=== PATIENT | female | born 1955 | race African-American/Black ===

== ENCOUNTER 2017-08-06 08:58 | Inpatient (IN) | payer OTHER ==
[~2017-08-06] VITALS: Ht 149.9 cm; Wt 58.1 kg
[~2017-08-06 08:58] MED LIST: ALPRAZOLAM0.5 MG PR; ATORVASTATIN CA40 MG PO; BENZONATATE100 M1 PO; BLACK COHOSH40 MG PO; CEFUROXIME AXE250 MG PO; CHILDREN'S ASPI81 M1 PO; CORICIDIN HBP C1 TAB PO; CYCLOBENZAPRINE10 M2 PO; CYCLOBENZAPRINE5 M2 PO; CYMBALTA30 M1 PO; DECADRON2 MG PO; DULOXETINE30 MG PO; FEOSOL325 MG PO; FLEXERIL10 MG PO; GLIPIZIDE5 MG PO; GLYBURIDE5 MG PO; HYDROCODON-ACE1 EAC2 PO; HYDROCODONE/ACE1 TA1 PO; HYDRODIURIL 112.5 M1 PO; IBUPROFEN400 M1 PO; IBUPROFEN600 M1 PO; INVOKANA300 M1 PO; KEFLEX500 M1 PO; LEVEMIR 10100 UNITS/ SC; LINZESS145 MC1 PO; LIPITOR80 M1 PO; METOPROLOL TAR100 MG PO; MOBIC15 MG PO; NEURONTIN300 MG PO; NEXIUM 40MG40 MG PO; NITROSTAT0.4 M1 SL; NOVOLOG100 U/ML SC; OMEPRAZOLE40 M1 PO; PATANOL 5 ML5 ML OPH; PRAVASTATIN SOD80 MG PO; PROZAC 10MG10 MG PO; SUMATRIPTAN SU100 M1 PO; TESSALON PERLE100 M1 PO; TIZANIDINE HCL2 M1 PO; TOPAMAX25 M3 PO; TRAMADOL HCL50 M1 PO; VITAMIN D31000 UNI2 PO; VOLTAREN GEL1% TOP; VOLTAREN100 GM TOP; WARFARIN SODIUM5 MG PO; ZESTORETIC 12.51 TA1 PO; ZOFRAN ODT4 MG PO
--- NOTE | 2017-08-06 09:32 | ED CARDIAC/CP/PALPITATIONS ---
History of Present Illness General Chief Complaint: Chest Pain Stated Complaint: CHEST TIGHTNESS/BURNINGX 2 HRS Source: patient, old records Exam Limitations: clinical condition, severe chest pain Vital Signs & Intake/Output Vital Signs & Intake/Output Vital Signs Date Time Temp Pulse Resp B/P B/P Pulse O2 O2 Flow FiO2 Mean Ox Delivery Rate 08/07 0951 138/86 08/07 0951 138/86 08/07 0713 98.2 83 20 138/86 94 Room Air 08/06 2235 98.1 99 20 138/76 96 Room Air 08/06 2010 99 138/76 08/06 2010 99 138/76 08/06 1719 98.1 93 20 134/80 96 Room Air 08/06 1541 98.0 95 18 139/68 97 Room Air 08/06 1142 98.3 93 18 139/81 99 Room Air ED Intake and Output 08/07 0000 08/06 1200 Intake Total 104 Output Total Balance 104 Intake, IV 104 Number 0 Bowel Movements Patient 186 lb Weight Weight Bed scale Measurement Method Allergies Coded Allergies: lisinopril (Severe, TONGUE SWELLING 12/09/15) Reconcile Medications Acetaminophen (Tylenol Arthritis) 650 MG TABLET.ER 1 TAB PO DAILY PRN PAIN ( Reported) Amlodipine Besylate 5 MG TABLET 1 TAB PO DAILY HEART (Reported) Aspirin (Children's Aspirin) 81 MG TAB.CHEW 1 TAB PO DAILY HEART HEALTH ( Reported) Atorvastatin Calcium (Lipitor) 80 MG TABLET 1 TAB PO DAILY CHOLESTEROL ( Reported) Benzonatate (Tessalon Perle) 100 MG CAPSULE 1 CAP PO TID PRN COUGH Canagliflozin (Invokana) 300 MG TABLET 1 TAB PO DAILY DIABETES (Reported) Cholecalciferol (Vitamin D3) 1,000 UNIT TABLET 1 TAB PO DAILY SUPPLEMENT ( Reported) Clotrimazole/Betamethasone Dip (Clotrimazole-Betamethasone Crm) 1 %-0.05 % CREAM..G. 1 EDD TOP BID UNKNOWN (Reported) apply to affected area(s) Cyanocobalamin (Vitamin B-12) (Vitamin B-12) 100 MCG TABLET 1 TAB PO DAILY VITAMIN SUPPORT (Reported) Duloxetine Hydrochloride (Cymbalta) 30 MG CAPSULE.DR 1 CAP PO BID NERVE PAIN (Reported) Ferrous Sulfate (Feosol) 325 MG (65 MG IRON) TABLET 1 TAB PO DAILY IRON, VITAMIN (Reported) Hydrocodone/Acetaminophen (Hydrocodon-Acetaminophen 5-325) 1 EACH TABLET 1 TAB PO PRN PAIN (Reported) Ibuprofen 600 MG TABLET 1 TAB PO BID PAIN (Reported) with food Lactobacillus Combination No.4 (Probiotic) 3 BILLION CELL CAPSULE 1 CAP PO DAILY GI (Reported) Linaclotide (Linzess) 145 MCG CAPSULE 1 CAP PO DAILY GI (Reported) Metoprolol Tartrate 100 MG TABLET 1 TAB PO BID HEART (Reported) Omeprazole 40 MG CAPSULE.DR 1 CAP PO BID GI (Reported) Ondansetron (Zofran Odt) 4 MG TAB.RAPDIS 1 TAB SL TID PRN NAUSEA/VOMITING ( Reported) Sumatriptan Succinate 100 MG TABLET 1 TAB PO DAILY PRN HEADACHE (Reported) may repeat in 2 hours; do not exceed 200 mg in 24 hours Tizanidine HCl 2 MG TABLET 1 TAB PO QPMP PRN PAIN (Reported) Tramadol HCl 50 MG TABLET 1 TAB PO TID PAIN (Reported) Triage Note: 61[address] BECERRA CARDIOLOGY W HX STENTS TO ED FOR MIDSTERNAL/LEFT SIDED CHEST TIGHTNESS SINCE 529, TOOK SLNG SUSPENDER 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 PT IMMEDIATELY EKG [place], SHOWING TACHY RATE 100'S WITH WIDE COMPLEX ?BBB BUT NO DEFINITIVE ST SEGMENT ELEVATION. PT IS TEARFUL, DYSPNIC AND DIAPHORETIC. IV ESTABLISHED AND BLOOD DRAWN AND SENT. -N/V/D. PT THEN TO ROOM 9, PLACED ON CM AND BEDPAN PER REQUEST. DR BALDERRAMA NOTIFIED OF NEED FOR EVALUATION Triage Nurses Notes Reviewed? yes HPI: Patient presents for evaluation of sudden onset of severe chest tightness and burning that began about 5:00 this morning while at home. Patient states she had pain similar to this prior to a cardiac stent. The pain waxes and wanes and is associated with dyspnea. Patient hasn't tried any medications for the pain. She does also refer history of acid reflux but she says the pain is dissimilar. Past History Travel History Traveled to [place] past 21 day No Medical History Any Pertinent Medical History? see below for history Neurological: NONE EENT: NONE Cardiovascular: AFIB, CAD, hypertension, myocardial infarction, stent placement Respiratory: NONE Gastrointestinal: GERD Hepatic: NONE Renal: NONE Musculoskeletal: chronic back pain, osteoarthritis, LEG SPASMS Psychiatric: NONE Endocrine: diabetes Blood Disorders: NONE Cancer(s): NONE MARKETING EDITOR/Reproductive: UTERINE FIBROIDS History of MRSA: No History of VRE: No History of CDIFF: No Surgical History Surgical History: hysterectomy Psychosocial History Who do you live with Patient and family Services at Home None What is your primary language Sinhala Tobacco Use: Cognitive Impairment Family History Family History, If Any: FATHER FH: NM (myocardial infarction) Hx Contributory? No Review of Systems Review of Systems Constitutional: Reports: no symptoms. EENTM: Reports: no symptoms. Respiratory: Reports: no symptoms. Cardiovascular: Reports: see HPI. GI: Reports: no symptoms. Genitourinary: Reports: no symptoms. Musculoskeletal: Reports: no symptoms. Skin: Reports: no symptoms. Neurological/Psychological: Reports: no symptoms. Hematologic/Endocrine: Reports: no symptoms. Immunologic/Allergic: Reports: no symptoms. All Other Systems: Reviewed and Negative Physical Exam Physical Exam Cardiovascular: SEE BELOW Comments: Gen.: Well-nourished, well-developed, severe distress secondary to chest pain Head: Normocephalic, atraumatic. Eyes: Normal inspection bilaterally Ears: Normal inspection bilaterally Nose: Normal inspection Throat/mouth : Moist mucosa Neck: Supple, full range of motion, no goiter Heart: IRRegular rate and rhythm, systolic murmur Lungs: Clear to auscultation bilaterally with normal air entry Chest: Nontender Back: Normal range of motion Abdomen: Soft, nontender, nondistended, normal bowel sounds Extremities: Normal range of motion grossly, equal radial pulses, no cyanosis clubbing or edema Neurologic: Cranial nerves grossly intact, speech is clear Skin: warm and dry Psychiatric: Anxious secondary to pain, cooperative, no apparent delusions or hallucinations Core Measures ACS in differential dx? No CVA/TIA Diagnosis No Sepsis Present: No Sepsis Focused Exam Completed? No Progress Differential Diagnosis: AMI, aortic dissection, musculoskeletal pain, pericarditis, pneumonia, pneumothorax, PSVT, pulmonary embolism, unstable angina Plan of Care: Orders Procedure Date/time Status Consistent Carbohydrate 3 08/07 B Active PARTIAL THROMBOPLASTIN TIME 08/07 0830 Complete HEPATIC FUNCTION PANEL 08/07 599 Complete CBC WITHOUT DIFFERENTIAL 08/07 599 Complete BASIC ELECTROLYTES PLUS BUN&CR 08/07 599 Complete ECHOCARDIOGRAM 08/07 599 Active Heart Healthy Diet 08/06 D Complete TROPONIN LEVEL 08/06 2345 Complete EKG 08/06 2345 Active TROPONIN LEVEL 08/06 2300 Complete EKG 08/06 2300 Active PARTIAL THROMBOPLASTIN TIME 08/06 2030 Complete Heparin Drip- AFIB/FLUTTER/PE/ 08/06 1750 Active Weight 08/06 1738 Active Vital Signs 08/06 1738 Active Teach/Educate 08/06 1738 Active Pain Treatment and Response 08/06 1738 Active Nutritional Intake, Monitor 08/06 1738 Active Isolation 08/06 1738 Complete Intake & Output 08/06 1738 Active Patient Care Conference 08/06 1738 Active Activity/Ambulation 08/06 1738 Active TOTAL TRIODOTHYROXINE 08/06 1730 Complete FREE T4 08/06 1730 Complete EKG 08/06 1710 Active Pathway - chart 08/06 1708 Active House Staff 08/06 1708 Active Patient Data 08/06 1708 Active CASE MANAGEMENT CONSULT 08/06 1708 Active Code Status 08/06 1708 Active URINALYSIS 08/06 1551 Complete Misc Message 08/06 1453 Active ED Holding Orders 08/06 1453 Active Admit to inpatient 08/06 1453 Active Vital Signs 08/06 1453 Active Code Status 08/06 1453 Complete Patient Data 08/06 1452 Active NIH Stroke Scale 08/06 0940 Complete Intake & Output 08/06 0925 Active THYROID STIMULATING HORMONE 08/06 0915 Complete LIPID PANEL 08/06 0915 Complete GLYCOSYLATED HGB 08/06 0915 Complete GAMMA GLUTAMYL TRANSFERASE 08/06 0915 Complete Lab Add-on Test 08/06 UNK Active VTE Mechanical Prophylaxis 08/06 UNK Active Vital Signs 08/06 UNK Complete MISTAKE 08/06 UNK Active Telemetry/Program Management Specialist 08/06 UNK Active Intake & Output 08/06 UNK Complete Hemoccult 08/06 UNK Active FingerStick- Glucose 08/06 UNK Active PHARMACY COMMUNICATION FORM 08/06 UNK Active Current Medications Sig/Karmen Start time Last Medication Dose Stop Time Status Admin Nitroglycerin 0.4 MG 2000 08/08 1999 AC (Transderm Nitro 10MG (0.4 MG/Hr) Patch) Insulin Aspart 0 TIDAC 08/07 08 AC 08/07 (NovoLOG) 0924 Diclofenac Sodium 1 EDD 4 TIMES/DAY PRN 08/06 2315 AC (Voltaren 1% Gel) Duloxetine HCl 30 MG BID 08/06 2099 AC 08/07 (Cymbalta) 0952 Metoprolol Tartrate 100 MG BID 08/06 2100 AC 08/07 (Lopressor) 0951 Polyethylene Glycol 17 GM AT BEDTIME 08/06 2100 AC (Miralax) Tizanidine HCl 2 MG QPM PRN 08/06 1745 AC 08/06 (Zanaflex) 2010 Omeprazole 40 MG DAILY AC 08/06 1742 AC 08/07 (Prilosec) 0641 Aspirin 81 MG DAILY 08/06 1739 AC 08/07 (Aspirin) 0952 Atorvastatin Calcium 80 MG 1700 08/06 1739 AC 08/06 (Lipitor) 2010 Amlodipine Besylate 5 MG DAILY 08/06 1738 AC 08/07 (Norvasc) 0951 Morphine Sulfate 2 MG Q6-PRN PRN 08/06 1715 AC 08/07 (MORPHINE SULFATE) 0925 Acetaminophen 650 MG Q6P PRN 08/06 1630 AC (Tylenol) Oxycodone/ 1 TAB Q6P PRN 08/06 1630 AC 08/07 Acetaminophen 1046 (Percocet) Heparin Sodium 25,000 UNIT Q24H 08/06 1345 AC 08/06 (Porcine) 1428 (Heparin) Sodium Chloride 500 ML Laboratory Tests 08/07/17 0655: Anion Gap 9, Estimated GFR > 60, BUN/Creatinine Ratio 22.5, Total Bilirubin 0.6, Direct Bilirubin 0.2, AST 40 H, ALT 49, Alkaline Phosphatase 108, Total Protein 7.2, Albumin 3.9, APTT > 120 *H, CBC w Diff NO MAN DIFF REQ, RBC 4.89, MCV 83.0, MCH 26.6 L, MCHC 32.0 L, RDW 13.7, MPV 9.3, Gran % 37.8 L, Lymphocytes % 46.3 , Monocytes % 9.3, Eosinophils % 5.9 H, Basophils % 0.7, Absolute Granulocytes 2.0, Absolute Lymphocytes 2.4, Absolute Monocytes 0.5, Absolute Eosinophils 0.3, Absolute Basophils 0 08/07/17 0300: Urine Color YEL, Urine Clarity CLEAR, Urine pH 6.0, Ur Specific [place] 1.020, Urine Protein NEG, Urine Ketones NEG, Urine Nitrite NEG, Urine Bilirubin NEG, Urine Urobilinogen 0.2, Ur Leukocyte Esterase NEG, Ur Microscopic EXAM NOT REQUIRED, Urine Hemoglobin NEG, Urine Glucose >=1000 H 08/06/17 2330: Troponin I < 0.01 08/06/172023: APTT 83 H 08/06/17 1730: Troponin I < 0.01, Free T4 2.42, Total T3 1.80 H 08/06/17 1710: Troponin I Cancelled Diagnostic Imaging: Discussed w/RAD: CT Scan. Radiology Impression: PATIENT: ATIYA PATTON PRESENT AGE: 61 PATIENT ACCOUNT NO: [id number] : 53 LOCATION: [facility] ORDERING PHYSICIAN: Avila Balderrama MD SERVICE DATE: 08/06/17 EXAM TYPE: CAT - CTA CHEST-AORTIC DISSECTION STUDY PERFORMED: CTA OF THE CHEST WITH AND WITHOUT CONTRAST CLINICAL INFORMATION: Aortic dissection. Severe burning chest tightness. DESCRIPTION: Initial noncontrast CT of the chest was performed. Subsequently, arterial phase multidetector volumetric imaging was performed through the chest following the administration of 95 mL Optiray 320 intravenous contrast. No contrast reaction reported Sagittal and coronal reformatted images were obtained on the technologist workstation. Three-dimensional MIP reformatted imaging was performed and reviewed. Total exam dose-length product 816 mGy-cm COMPARISON: None FINDINGS: Vascular: There is no intramural hematoma on the precontrast images. The thoracic aorta is normal in caliber. There is no evidence of dissection. No significant atheromatous calcifications are seen. The great vessel origins are normal. The celiac axis and superior mesenteric arteries appear normal. Both renal arteries demonstrated a beaded morphology suggestive of fibromuscular dysplasia. A stent is present in the proximal aspect of the left renal artery. 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 The pulmonary artery is normal in caliber. No central or segmental pulmonary embolism is seen. Nonvascular: CHEST: The central airways are patent. No consolidation or mass is seen. There is a 3 mm nodule in the right upper lobe (series 4 image 189), a 2 mm nodule in the right middle lobe ( series 4 image 255), 4 mm nodule in the right lower lobe (series 4 image 284) and scattered sub-2 mm nodules in both lungs. There is subsegmental atelectasis in the right lower lobe. There is no pleural effusion or pneumothorax. A right upper paratracheal lymph node is mildly enlarged measuring 1.2 cm. Is normal nonenlarged mediastinal lymph nodes are noted. Reactive appearing axillary lymph nodes are seen bilaterally. There is no supraclavicular lymphadenopathy. The thyroid gland appears normal. No hilar lymphadenopathy is seen. There are multilevel degenerative changes in the thoracic spine. No fracture or destructive osseous lesion is seen. There are bilateral renal cysts. The remainder of the visualized upper abdominal viscera are within normal limits. IMPRESSION: - No evidence of aortic dissection or aneurysm. No pulmonary embolism. - No mass or consolidation in the chest. Scattered bilateral pulmonary nodules measuring up to 3 mm. According to the updated 2017 Fleischner Society recommendations, the advised follow-up imaging for solid nodules < 6 mm is: LOW RISK PATIENT: No routine follow-up. HIGH RISK PATIENT: Optional CT at 12 months. - Beaded morphology of the bilateral renal arteries typical of fibromuscular dysplasia. A left renal stent is present and is patent. 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 This finding requires follow-up. This critical result was discussed with Avila Balderrama on 08/06/2017 11:55 AM, and it was ascertained that the content and urgency of the report was understood at the time of direct communication. DICTATED BY: Hillary Herrera MD DATE/TIME DICTATED:08/06/171136 CASINO CONTROLLER:MADELINE DATE/TIME TRANSCRIBED:08/06/171136 CONFIDENTIAL, DO NOT COPY WITHOUT APPROPRIATE AUTHORIZATION. <Electronically signed in Other Vendor System> SIGNED BY: Hillary Herrera MD 08/06/17 1200 Initial ED EKG: rate (90), AFIB, nonspecific ST T wave chg Prior EKG: changed (nsr on prior) Comments: 08/06/2017 9:45:02 AM ATIYA just received sublingual nitroglycerin but cannot state if she feels any better. She remains hemodynamically stable. 08/06/2017 10:05:00 AM patient's pain has improved from an 8 out of 10 to a 5 out of 10. Clinically she looks more comfortable. Blood pressure in both arms is normal and without significant variation. She will receive morphine for pain. 08/06/2017 10:45:08 AM I have updated Atiya on her test results. She states she feels well currently and offers no complaint. 08/06/2017 12:16:56 PM Atiya feels well and does not currently have chest pain. She is sipping fluids and states the fluids do not re-create the pain. I have paged her stage driver, Dr. Becerra. The cause of her severe chest pain is unclear at this time. 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 08/06/2017 1:36:00 PM patient's case discussed with Dr. Becerra who feels the patient should be admitted and placed on IV heparin for her paroxysm of atrial fibrillation and given the initial clinical presentation. Departure Departure Disposition: STILL A PATIENT Condition: Stable Clinical Impression Primary Impression: Chest pain Referrals: Jeniffer Baeza MD (PCP/Family) Departure Forms: Customer Survey General Discharge Information Admission Note Spoke With: Angel Pickett MD Documentation of Exam: Documentation of any treatments & extenuating circumstances including Concerns Regarding Discharge (functional status, medication knowledge or non-compliance, living conditions, etc.) that warrant an admission rather than observation: Patient presented with severe chest pain. Her evaluation is unrevealing as to the underlying cause. The patient does have risk factors for coronary artery disease. She required not only nitroglycerin but also IV narcotics for appropriate pain control. I do not feel this is a good patient for outpatient management given the unclear nature of her severe pain. In addition her pain would prevent her from compliance with outpatient treatment. She requires hospitalization for IV narcotics for pain management. She should have serial troponins and EKGs and cardiology consultation should be considered for the possibility of coronary artery disease. Given the unclear nature of the cause of this patient's pain, additional studies should be considered such as echocardiogram or endoscopy. I feel this patient will require a multiple day hospitalization. Critical Care Note Critical Care Note Critical Care Time: 30-74 min
[2017-08-06 09:42] LABS: ABSOLUTE BASOPHIL COUNT 0 /CUMM (0.0-0.2); ABSOLUTE EOSINOPHIL COUNT 0.3 /CUMM (0.0-0.7); ABSOLUTE MONOCYTE COUNT 0.6 /CUMM (0.10-0.60); BASOPHIL % 0.4 % (0.0-2.0); EOSINOPHIL % 5.4 % (0-5); GRANULOCYTE % 41.5 % (42.2-75.2); HEMATOCRIT 44.9 % (37-47); MEAN CORPUSCULAR HGB 26.2 PG (27.0-31.0); MEAN CORPUSCULAR HGB CONC 31.8 G/DL (33.0-37.0); MEAN CORPUSCULAR VOLUME 82.5 FL (81.0-99.0); MEAN PLATELET VOLUME 9.1 FL (7.4-10.4); PLATELET COUNT 179 /CUMM (130-400); RBC DISTRIBUTION WIDTH 13.8 % (11.5-14.5); RED BLOOD CELL CT 5.44 /CUMM (4.20-5.40); WHITE BLOOD CELL COUNT 4.8 /CUMM (4.8-10.8)
[2017-08-06 09:50] LABS: PT 10.6 SEC (9.4-12.5)
--- NOTE | 2017-08-06 12:00 | CT SCAN REPORT ---
STUDY PERFORMED: CTA OF THE CHEST WITH AND WITHOUT CONTRAST CLINICAL INFORMATION: Aortic dissection. Severe burning chest tightness. DESCRIPTION: Initial noncontrast CT of the chest was performed. Subsequently, arterial phase multidetector volumetric imaging was performed through the chest following the administration of 95 mL Optiray 320 intravenous contrast. No contrast reaction reported Sagittal and coronal reformatted images were obtained on the technologist workstation. Three-dimensional MIP reformatted imaging was performed and reviewed. Total exam dose-length product 816 mGy-cm COMPARISON: None FINDINGS: Vascular: There is no intramural hematoma on the precontrast images. The thoracic aorta is normal in caliber. There is no evidence of dissection. No significant atheromatous calcifications are seen. The great vessel origins are normal. The celiac axis and superior mesenteric arteries appear normal. Both renal arteries demonstrated a beaded morphology suggestive of fibromuscular dysplasia. A stent is present in the proximal aspect of the left renal artery. 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 The pulmonary artery is normal in caliber. No central or segmental pulmonary embolism is seen. Nonvascular: CHEST: The central airways are patent. No consolidation or mass is seen. There is a 3 mm nodule in the right upper lobe (series 4 image 189), a 2 mm nodule in the right middle lobe (series 4 image 255), 4 mm nodule in the right lower lobe (series 4 image 284) and scattered sub-2 mm nodules in both lungs. There is subsegmental atelectasis in the right lower lobe. There is no pleural effusion or pneumothorax. A right upper paratracheal lymph node is mildly enlarged measuring 1.2 cm. Is normal nonenlarged mediastinal lymph nodes are noted. Reactive appearing axillary lymph nodes are seen bilaterally. There is no supraclavicular lymphadenopathy. The thyroid gland appears normal. No hilar lymphadenopathy is seen. There are multilevel degenerative changes in the thoracic spine. No fracture or destructive osseous lesion is seen. There are bilateral renal cysts. The remainder of the visualized upper abdominal viscera are within normal limits. IMPRESSION: - No evidence of aortic dissection or aneurysm. No pulmonary embolism. - No mass or consolidation in the chest. Scattered bilateral pulmonary nodules measuring up to 3 mm. According to the updated 2017 Fleischner Society recommendations, the advised follow-up imaging for solid nodules < 6 mm is: LOW RISK PATIENT: No routine follow-up. HIGH RISK PATIENT: Optional CT at 12 months. - Beaded morphology of the bilateral renal arteries typical of fibromuscular dysplasia. A left renal stent is present and is patent. 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 This finding requires follow-up. This critical result was discussed with Avila Balderrama on 08/06/2017 11:55 AM, and it was ascertained that the content and urgency of the report was understood at the time of direct communication.
[2017-08-06] MEDS ORDERED: TYLENOL ARTHRI650 M1 PO (14:49)
[2017-08-06] MEDS ORDERED: CLOTRIMAZOLE-BE15 GM TOP (14:50)
[2017-08-06] MEDS ORDERED: HYDROCODON-ACE1 EAC2 PO (14:52)
[2017-08-06] MEDS ORDERED: PROBIOTIC1 EAC1 PO (14:53)
[2017-08-06] MEDS ORDERED: METOPROLOL TAR100 M1 PO (14:55)
[2017-08-06] MEDS ORDERED: ZOFRAN ODT4 M1 SL (14:55)
[2017-08-06] MEDS ORDERED: VITAMIN B-12100 MC1 PO (14:56)
[2017-08-06] MEDS ORDERED: AMLODIPINE BESYL5 M1 PO (14:57)
--- NOTE | 2017-08-06 15:11 | PN- Att Addend ---
Attending Addendum Attending Brief Note Patient 61 o/f with pmh of hypertension, CAD and diabetes with renal artery stent placement in past presents for evaluation of sudden onset of severe chest tightness. Patient states she had pain similar to this prior to a cardiac stent. No fever, chills but diaphoresis on presentatin. No recent travel or sick contacts. Vitals stable HR 93 BP 139/81 SPO2 98 on RA trop 0.01 PE alert oriented x 3, not acute distress HEENT unremarakble Chest B/l air entry present CVS irregular heart rate Pulses +b/l lower extremities Neuro intact GI soft non tender Patient admitted for chest pain likely unstable angina with new onset atrial fibrillation. Place in telemetry monitoring. Obtain serial cardiac enzyems r/o VT. Cardiology consult. Start iv heparin, asa, statin, nitrates. Iv cardizem for HR control fibromuscular dysplasia. A left renal stent is present and is patent. 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 Attending MD Review Statement Attending Statement Attending MD Statement: examined this patient, discuss w/resident/PA/DOUGH BRAKE MACHINE OPERATOR, agreed w/resident/PA/DOUGH BRAKE MACHINE OPERATOR, discussed with family, reviewed EMR data (avail), discussed w/ nursing, discussed w/case mgmt, reviewed images, amended to note Attending Assessment/Plan: as above Admission Lab Results I reviewed the following labs: Laboratory Tests 08/06 0915 Chemistry Sodium (137 - 145 mmol/L) 143 Potassium (3.5 - 5.1 mmol/L) 4.2 Chloride (98 - 107 mmol/L) 103 Carbon Dioxide (22 - 30 mmol/L) 26 Anion Gap (5 - 16) 14 BUN (7 - 17 mg/dL) 18 H Creatinine (0.5 - 1.0 mg/dL) 0.9 Estimated GFR (>60 ml/min) > 60 BUN/Creatinine Ratio (7 - 25 %) 20.0 Glucose (65 - 99 mg/dL) 220 H Calcium (8.4 - 10.2 mg/dL) 10.2 Magnesium (1.6 - 2.3 mg/dL) 1.7 Total Bilirubin (0.2 - 1.3 mg/dL) 0.5 AST (14 - 36 U/L) 40 H ALT (9 - 52 U/L) 58 H Alkaline Phosphatase (<127 U/L) 144 H Troponin I (< 0.11 ng/ml) < 0.01 Total Protein (6.3 - 8.2 g/dL) 7.9 Albumin (3.5 - 5.0 g/dL) 4.4 Globulin (1.9 - 4.2 gm/dL) 3.5 Albumin/Globulin Ratio (1.1 - 2.2 %) 1.3 Lipase (23 - 300 U/L) 174 Coagulation PT (9.4 - 12.5 SEC) 10.6 INR (0.90 - 1.19) 0.97 Hematology CBC w Diff NO MAN DIFF REQ WBC (4.8 - 10.8 /CUMM) 4.8 RBC (4.20 - 5.40 /CUMM) 5.44 H Hgb (12.0 - 16.0 G/DL) 14.3 Hct (37 - 47 %) 44.9 MCV (81.0 - 99.0 FL) 82.5 MCH (27.0 - 31.0 PG) 26.2 L MCHC (33.0 - 37.0 G/DL) 31.8 L RDW (11.5 - 14.5 %) 13.8 Plt Count (130 - 400 /CUMM) 179 MPV (7.4 - 10.4 FL) 9.1 Gran % (42.2 - 75.2 %) 41.5 L Lymphocytes % (20.5 - 51.1 %) 41.1 Monocytes % (1.7 - 9.3 %) 11.6 H Eosinophils % (0 - 5 %) 5.4 H Basophils % (0.0 - 2.0 %) 0.4 Absolute Granulocytes (1.4 - 6.5 /CUMM) 2.0 Absolute Lymphocytes (1.2 - 3.4 /CUMM) 2.0 Absolute Monocytes (0.10 - 0.60 /CUMM) 0.6 Absolute Eosinophils (0.0 - 0.7 /CUMM) 0.3 Absolute Basophils (0.0 - 0.2 /CUMM) 0 Admission Meds I reviewed the following Meds: Current Medications Sig/Karmen Start time Last Medication Dose Stop Time Status Admin Heparin Sodium 25,000 UNIT Q24H 08/06 1345 AC 08/06 (Porcine) 1428 (Heparin) Sodium Chloride 500 ML
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
[2017-08-06 17:19] VITALS: BP 134/80
--- NOTE | 2017-08-06 18:24 | PN- Student ---
Subjective Subjective: HPI: The patient is a 61 year old female with a PMHx of A fib, T2DM, hypercholesterolemia, HTN, and NC s/p stent placement 12 years ago, who was brought into the ED by her daughter with 3-4 hours of chest pain. She was sitting in a chair at 5:00am when she felt a sudden pain in her left shoulder, which progressed into her left chest and down her left arm. She described the pain as a tightening, burning sensation, and like someone was pounding on her chest. The pain was a 11/10, and nothing made it better or worse. She got up to go to the bathroom and felt dizzy, so she had to lean against the sink for stability. She said she was so short of breath that she had to stay there for a while. Her SOB didn't change with position. She reported feeling sweaty, dizzy, weak, and nauseous during this time, and felt like her heart was racing. She had 1 tablet of sublingual nitroglycerin in the ED and reports that she is currently pain free. She denied any fever, chills, cough, vomiting, diarrhea, constipation , or recent infection. She didn't take any of her usual medications this morning because of the chest pain. She saw Dr. Millard 6 weeks ago when he increaed her atorvastatin to 80mg daily and added 5mg of daily amlodipine for additional blood pressure control. She is not on anticoagulation for her a fib. Her daughter is concerned that she is drinking so much water, and thinks that her glucose monitor is incorrect. The patient states that she checks her BG every other day in the morning before she eats, or when she is feeling bad. Past Medical History: Atrial fibrillation (12 years) HTN NC - stents (12 years ago) T2DM Hypercholesterolemia Hysterectomy Chronic low back pain Leg cramps Fibromuscular dysplasia s/p L renal artery stent? Social History: The patient lives at home with one of her daughters and grandaughter. Her other daughter lives down the street. She ambulates with cane. She is a lifetime non- smoker, denies any EtOH or recreational drug use. Family History: Father- of NC at age 69 Sister- of breast cancer 3 Children - no reported medical history ROS: See HPI Objective Objective: Vital Signs Date Time Temp Pulse Resp B/P B/P Pulse O2 O2 Flow FiO2 Mean Ox Delivery Rate 06/21 1719 98.1 93 20 134/80 96 Room Air 08/06 1541 98.0 95 18 139/68 97 Room Air 08/06 1142 98.3 93 18 139/81 99 Room Air 08/06 1011 118/74 08/06 0946 179/98 08/06 920 98.2 106 30 179/98 99 Room Air Physical Exam: General Appearance Alert, Oriented X3, Cooperative HEENT Atraumatic, PERRLA, EOMI, Mucous Membr. moist/pink Cardiovascular Normal S1, Normal S2 Lungs Clear to Auscultation Abdomen Normal Bowel Sounds, Soft Neurological Normal Speech Extremities No Clubbing, No Cyanosis, No Edema Current Medications Sig/Karmen Start time Last Medication Dose Route Stop Time Status Admin Acetaminophen 650 MG Q6P PRN 08/06 1630 AC PO Amlodipine Besylate 5 MG DAILY 08/06 1738 AC PO Aspirin 81 MG DAILY 08/06 1739 AC PO Atorvastatin Calcium 80 MG 1700 08/06 1739 AC PO Duloxetine HCl 30 MG BID 08/06 2100 AC PO Heparin Sodium 0 .STK-MED ONE 08/06 1359 DC (Porcine) .ROUTE Heparin Sodium 4,000 UNIT ONCE ONE 08/06 1345 DC 08/06 (Porcine) IV 08/06 1346 1428 Heparin Sodium 25,000 UNIT Q24H 08/06 1345 AC 08/06 (Porcine) IV 1428 Sodium Chloride 500 ML Insulin Aspart 0 TIDAC 08/07 0800 AC SC Lorazepam 0 .STK-MED ONE 08/06 1635 DC .ROUTE Lorazepam 0.5 MG ONCE ONE 08/06 1600 DC 08/06 IV 08/06 1601 1636 Lorazepam 0 .STK-MED ONE 08/06 1359 DC .ROUTE Lorazepam 0.5 MG ONCE ONE 08/06 1345 DC 08/06 IV 08/06 1346 1428 Metoprolol Tartrate 100 MG BID 08/06 2100 AC PO Metoprolol Tartrate 0 .STK-MED ONE 08/06 0932 DC IV Metoprolol Tartrate 5 MG ONCE ONE 08/06 0930 DC 08/06 IV 08/06 0931 0946 Morphine Sulfate 2 MG Q6-PRN PRN 08/06 1715 AC 08/06 IV 1807 Morphine Sulfate 0 .STK-MED ONE 08/06 1000 DC .ROUTE Morphine Sulfate 4 MG ONCE ONE 08/06 929 DC 08/06 IV 08/06 930 1009 Nitroglycerin 0.4 MG DAILY 08/06 1717 AC TOP Nitroglycerin 0 .STK-MED ONE 08/07 931 DC TOP Nitroglycerin 0 .STK-MED ONE 08/07 931 DC SL Nitroglycerin 0.4 MG ONCE ONE 08/06 929 DC 08/06 SL 08/06 930 0946 Nitroglycerin 1 GM ONCE ONE 08/06 929 DC 08/06 TOP 08/06 930 0946 Omeprazole 40 MG DAILY AC 08/06 1742 AC PO Oxycodone/ 1 TAB Q6P PRN 08/06 1630 AC Acetaminophen PO Polyethylene Glycol 17 GM AT BEDTIME 08/06 2100 AC PO Tizanidine HCl 2 MG QPM PRN 08/06 1745 AC PO Laboratory Tests 08/06 08/06 1730 0915 Chemistry Sodium (137 - 145 mmol/L) 143 Potassium (3.5 - 5.1 mmol/L) 4.2 Chloride (98 - 107 mmol/L) 103 Carbon Dioxide (22 - 30 mmol/L) 26 Anion Gap (5 - 16) 14 BUN (7 - 17 mg/dL) 18 H Creatinine (0.5 - 1.0 mg/dL) 0.9 Estimated GFR (>60 ml/min) > 60 BUN/Creatinine Ratio (7 - 25 %) 20.0 Glucose (65 - 99 mg/dL) 220 H Hemoglobin A1c (4.2 - 5.8 %) Pending Calcium (8.4 - 10.2 mg/dL) 10.2 Magnesium (1.6 - 2.3 mg/dL) 1.7 Total Bilirubin (0.2 - 1.3 mg/dL) 0.5 GGT (12 - 43 U/L) 94 H AST (14 - 36 U/L) 40 H ALT (9 - 52 U/L) 58 H Alkaline Phosphatase (<127 U/L) 144 H Troponin I (< 0.11 ng/ml) Pending < 0.01 Total Protein (6.3 - 8.2 g/dL) 7.9 Albumin (3.5 - 5.0 g/dL) 4.4 Globulin (1.9 - 4.2 gm/dL) 3.5 Albumin/Globulin Ratio (1.1 - 2.2 %) 1.3 Lipase (23 - 300 U/L) 174 TSH (0.270 - 4.200 uIU/mL) 0.148 L Coagulation PT (9.4 - 12.5 SEC) 10.6 INR (0.90 - 1.19) 0.97 Hematology CBC w Diff NO MAN DIFF REQ WBC (4.8 - 10.8 /CUMM) 4.8 RBC (4.20 - 5.40 /CUMM) 5.44 H Hgb (12.0 - 16.0 G/DL) 14.3 Hct (37 - 47 %) 44.9 MCV (81.0 - 99.0 FL) 82.5 MCH (27.0 - 31.0 PG) 26.2 L MCHC (33.0 - 37.0 G/DL) 31.8 L RDW (11.5 - 14.5 %) 13.8 Plt Count (130 - 400 /CUMM) 179 MPV (7.4 - 10.4 FL) 9.1 Gran % (42.2 - 75.2 %) 41.5 L Lymphocytes % (20.5 - 51.1 %) 41.1 Monocytes % (1.7 - 9.3 %) 11.6 H Eosinophils % (0 - 5 %) 5.4 H Basophils % (0.0 - 2.0 %) 0.4 Absolute Granulocytes (1.4 - 6.5 /CUMM) 2.0 Absolute Lymphocytes (1.2 - 3.4 /CUMM) 2.0 Absolute Monocytes (0.10 - 0.60 /CUMM) 0.6 Absolute Eosinophils (0.0 - 0.7 /CUMM) 0.3 Absolute Basophils (0.0 - 0.2 /CUMM) [address]: - No evidence of aortic dissection or aneurysm. No pulmonary embolism. - No mass or consolidation in the chest. Scattered bilateral pulmonary nodules measuring up to 3 mm. According to the updated 2017 Fleischner Society recommendations, the advised follow-up imaging for solid nodules < 6 mm is: LOW RISK PATIENT: No routine follow-up. HIGH RISK PATIENT: Optional CT at 12 months. - Beaded morphology of the bilateral renal arteries typical of fibromuscular dysplasia. A left renal stent is present and is patent. 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 This finding requires follow-up. Results Results: Laboratory Tests 08/06/17 1730: Troponin I Pending 08/06/17 0915: Anion Gap 14, Estimated GFR > 60, BUN/Creatinine Ratio 20.0, Glucose 220 H, Hemoglobin A1c Pending, Calcium 10.2, Magnesium 1.7, Total Bilirubin 0.5, GGT 94 H, AST 40 H, ALT 58 H, Alkaline Phosphatase 144 H, Troponin I < 0.01, Total Protein 7.9, Albumin 4.4, Globulin 3.5, Albumin/Globulin Ratio 1.3, Lipase 174, TSH 0.148 L, PT 10.6, INR 0.97, CBC w Diff NO MAN DIFF REQ, RBC 5.44 H, MCV 82.5, MCH 26.2 L, MCHC 31.8 L, RDW 13.8, MPV 9.1, Gran % 41.5 L, Lymphocytes % 41.1, Monocytes % 11.6 H, Eosinophils % 5.4 H, Basophils % 0.4, Absolute Granulocytes 2.0, Absolute Lymphocytes 2.0, Absolute Monocytes 0.6, Absolute Eosinophils 0.3, Absolute Basophils 0 Assessment/Plan Assessment: The patient is a 61 year old female with a PMHx of A fib, T2DM, hypercholesterolemia, HTN, and NC s/p stent placement 12 years ago, who presented to the ED with 3-4 hours of tightening chest pain with radiation down her left arm. Her intial troponin was negative and there was no ST elevation on EKG. Her vitals on admission were T 98.3, HR 93, RR 18, BP 139/81, O2 99% on RA. Her BG was 220, AST 40, ALT 58, GGT 94, Alk Phos 144. Her chest CT showed no evidence of aortic dissection or aneurysm, was was significant for beaded morphology of renal arteries suggestive of fibromuscular dysplasia and a patent L renal artery stent, 2.1 cm peripheral calciefied aneurysm on L renal artery, and scattered bilateral pulmonary nodules up to 3mm. She was seen in 2014 for unstable angina and a fib, and her echo at that time showed EF of >60%, dipyridamole stress test was negative. Differential diagnosis includes unstable angina, atrial fibrillation, NC, hypertensive urgency, GERD, musculoskeletal pain. The patient was sitting when the pain occured suddenly, was not associated with eating and did not change with movement or palpation which can lower GERD and MSK pain on differential. Patient's bp was high on admission but not high enough to qualify for hypertensive urgency, and has since gone down to 139/81 which suggests it was not hypertensive urgency. Need to take NC precautions and repeat troponin, EKG, and telemetry. Her pain improved with SNG which suggests it was ischemic in nature, but troponin, and EKG were negative for NC so unstable angina seems most likely. Plan: Chest pain: Nitroglycerin Morphine for pain Heparin drip Aspirin Beta carmelo Statin Telemetry Repeat troponin Atrial fibrillation: Continue home medications Start on anticoagulation Continue amlodipine 5mg daily Diabetes Mellitus: Consult endocrinology Insulin Diet control ACCU checks Order an HbA1c Chronic back pain: Acetaminophen [address] Q6 [address] Renal artery stenosis: Control blood pressure Monitor kidney function Pulmonary nodules: Pulmonary consult
--- NOTE | 2017-08-06 19:22 | CT SCAN REPORT ---
EXAMINATION: CT LUMBAR SPINE WITHOUT CONTRAST CLINICAL INFORMATION: Severe lumbar spine pain in setting of lung nodules. COMPARISON: CT scan of the pelvis 12/09/2015. MRI scan of the lumbar spine 01/04/2014. TECHNIQUE: Helical non-contrast CT images were obtained through the lumbar spine and 1.25 and 2.5 mm axial reconstructions were reviewed along with sagittal and coronal MPRs. DLP: 914.58 mGy-cm FINDINGS: The study redemonstrates the grade 1 anterolisthesis of L4 on L5. There is a mild retrolisthesis of L5 on S1. There is narrowing of intervertebral disc height at multiple levels. Vertebral body heights are maintained. There are no compression fractures. Bone mineralization appears normal. Contrast is noted in the renal collecting systems and urinary bladder, from CTA of the chest performed earlier on 08/06/2017. There is an incompletely visualized renal cyst at the mid/lower pole of the right kidney. There is a left renal artery stent. There are moderate sclerotic degenerative changes at the bilateral sacroiliac joints with vacuum phenomena. SPINAL LEVELS: T12-L1: The disc configuration is normal. The central canal and neural foramina are widely patent. The facet joints are normal. L1-L2: There is mild bilateral facet arthropathy. Disc contour is normal. There is no central stenosis or foraminal narrowing. L2-L3: There is mild facet arthropathy with ligamenta flava hypertrophy. There is mild diffuse disc bulge. There is no central stenosis. The neural foramina appear patent. L3-L4: There is severe right and moderate to severe left facet arthropathy. There is a broad-based posterior disc protrusion extending into the right greater than left neural foramina, with likely impingement on the exiting right L3 nerve root, which is a new finding. There is narrowing of the subarticular recesses bilaterally and there is moderate central stenosis. L4-L5: There is unroofing of the disc as a result of the anterolisthesis. There is severe bilateral facet arthropathy with ligamenta flava hypertrophy. There is a posterior disc protrusion extending into the neural foramina bilaterally with impingement on the exiting L4 nerve roots, similar compared to the prior study. There is severe central stenosis. L5-S1: There is moderate to severe bilateral facet arthropathy. There is a left-sided disc osteophyte complex extending into the left neural foramen with impingement on the exiting left L5 nerve root, similar compared to the prior study. There is narrowing of the left subarticular recess. There is no central stenosis. IMPRESSION: 1. The study redemonstrates the grade 1 anterolisthesis of L4 on L5 secondary to severe bilateral facet arthropathy. There are bilateral foraminal disc protrusions impinging on the exiting L4 nerve roots and there is severe central stenosis. 2. There is a new right foraminal disc protrusion at L3-L4 with impingement on the exiting right L3 nerve root. There is moderate central stenosis and subarticular recess narrowing. 3. There is a left foraminal disc osteophyte complex at L5-S1 with impingement on the exiting left L5 nerve root, unchanged. 4. There are no acute fractures or subluxations. Bone mineralization appears within normal limits.
--- NOTE | 2017-08-06 19:49 | Cons- Cardiology ---
General Information and HPI Consulting Request Date of Consult: 08/06/17 Requested By: Angel Pickett MD Reason for Consult: Chest pain, atrial fibrillator History of Present Illness: The patient is a a 61-year-old female with history of CAD, status post stent placement approximately 12 years ago, remote history of atrial fibrillation, and pulmonary embolism in 2009. She has been off anticoagulation because she has not had recurrence of atrial fibrillation in many years. She presented to the emergency department with complaint of chest tightness which began when she awoke from sleep at 5:00 AM. The tightness radiated to her left arm and varied up to 10 out of 10 in severity. There was associated diaphoresis, dizziness, nausea, and shortness of breath. She presented to the emergency department after 3 hours, and she was found to be in atrial fibrillation. Ventricular rate was under control. She notes intermittent nausea. She was treated with sublingual nitroglycerin in the emergency department. She is now pain-free. No syncope. No orthopnea. Allergies/Medications Allergies: Coded Allergies: lisinopril (Severe, TONGUE SWELLING 12/09/15) Home Med List: Acetaminophen (Tylenol Arthritis) 650 MG TABLET.ER 1 TAB PO DAILY PRN PAIN ( Reported) Amlodipine Besylate 5 MG TABLET 1 TAB PO DAILY HEART (Reported) Aspirin (Children's Aspirin) 81 MG TAB.CHEW 1 TAB PO DAILY HEART HEALTH ( Reported) Atorvastatin Calcium (Lipitor) 80 MG TABLET 1 TAB PO DAILY CHOLESTEROL ( Reported) Benzonatate (Tessalon Perle) 100 MG CAPSULE 1 CAP PO TID PRN COUGH Canagliflozin (Invokana) 300 MG TABLET 1 TAB PO DAILY DIABETES (Reported) Cholecalciferol (Vitamin D3) 1,000 UNIT TABLET 1 TAB PO DAILY SUPPLEMENT ( Reported) Clotrimazole/Betamethasone Dip (Clotrimazole-Betamethasone Crm) 1 %-0.05 % CREAM..G. 1 EDD TOP BID UNKNOWN (Reported) apply to affected area(s) Cyanocobalamin (Vitamin B-12) (Vitamin B-12) 100 MCG TABLET 1 TAB PO DAILY VITAMIN SUPPORT (Reported) Duloxetine Hydrochloride (Cymbalta) 30 MG CAPSULE.DR 1 CAP PO BID NERVE PAIN (Reported) Ferrous Sulfate (Feosol) 325 MG (65 MG IRON) TABLET 1 TAB PO DAILY IRON, VITAMIN (Reported) Hydrocodone/Acetaminophen (Hydrocodon-Acetaminophen 5-325) 1 EACH TABLET 1 TAB PO PRN PAIN (Reported) Ibuprofen 600 MG TABLET 1 TAB PO BID PAIN (Reported) with food Lactobacillus Combination No.4 (Probiotic) 3 BILLION CELL CAPSULE 1 CAP PO DAILY GI (Reported) Linaclotide (Linzess) 145 MCG CAPSULE 1 CAP PO DAILY GI (Reported) Metoprolol Tartrate 100 MG TABLET 1 TAB PO BID HEART (Reported) Omeprazole 40 MG CAPSULE.DR 1 CAP PO BID GI (Reported) Ondansetron (Zofran Odt) 4 MG TAB.RAPDIS 1 TAB SL TID PRN NAUSEA/VOMITING ( Reported) Sumatriptan Succinate 100 MG TABLET 1 TAB PO DAILY PRN HEADACHE (Reported) may repeat in 2 hours; do not exceed 200 mg in 24 hours Tizanidine HCl 2 MG TABLET 1 TAB PO QPMP PRN PAIN (Reported) Tramadol HCl 50 MG TABLET 1 TAB PO TID PAIN (Reported) Current Medications: Current Medications Sig/Karmen Start time Last Medication Dose Route Stop Time Status Admin Acetaminophen 650 MG Q6P PRN 08/06 1630 AC PO Amlodipine Besylate 5 MG DAILY 08/06 1738 AC PO Aspirin 81 MG DAILY 08/06 1739 AC PO Atorvastatin Calcium 80 MG 1700 08/06 1739 AC PO Duloxetine HCl 30 MG BID 08/06 2100 AC PO Heparin Sodium 0 .STK-MED ONE 08/06 1359 DC (Porcine) .ROUTE Heparin Sodium 4,000 UNIT ONCE ONE 08/06 1345 DC 08/06 (Porcine) IV 08/06 1346 1428 Heparin Sodium 25,000 UNIT Q24H 08/06 1345 AC 08/06 (Porcine) IV 1428 Sodium Chloride 500 ML Insulin Aspart 0 TIDAC 08/07 0800 AC SC Lorazepam 0 .STK-MED ONE 08/06 1635 DC .ROUTE Lorazepam 0.5 MG ONCE ONE 08/06 1600 DC 08/06 IV 08/06 1601 1636 Lorazepam 0 .STK-MED ONE 08/06 1359 DC .ROUTE Lorazepam 0.5 MG ONCE ONE 08/06 1345 DC 08/06 IV 08/06 1346 1428 Metoprolol Tartrate 100 MG BID 08/06 2100 AC PO Metoprolol Tartrate 0 .STK-MED ONE 08/06 0932 DC IV Metoprolol Tartrate 5 MG ONCE ONE 08/06 929 DC 08/06 IV 08/06 0931 0946 Morphine Sulfate 2 MG Q6-PRN PRN 08/06 1715 AC 08/06 IV 1807 Morphine Sulfate 0 .STK-MED ONE 08/06 1000 DC .ROUTE Morphine Sulfate 4 MG ONCE ONE 08/06 09 DC 08/06 IV 08/06 0931 1009 Nitroglycerin 0.4 MG DAILY 08/06 1717 AC TOP Nitroglycerin 0 .STK-MED ONE 08/06 0932 DC TOP Nitroglycerin 0 .STK-MED ONE 08/06 0932 DC SL Nitroglycerin 0.4 MG ONCE ONE 08/06 0930 DC 08/06 SL 08/06 0831 0946 Nitroglycerin 1 GM ONCE ONE 08/06 929 DC 08/06 TOP 08/06 930 0946 Omeprazole 40 MG DAILY AC 08/06 1742 AC PO Oxycodone/ 1 TAB Q6P PRN 08/06 1630 AC Acetaminophen PO Polyethylene Glycol 17 GM AT BEDTIME 08/06 2100 AC PO Tizanidine HCl 2 MG QPM PRN 08/06 1745 AC PO Review of Systems Review of Systems: No rash. No tremor. No fever. No chills. All other systems are reviewed and are noted to be negative. Past History Travel History Traveled to [place] past 21 day No Medical History Blood Transfusion Hx: No Neurological: NONE EENT: NONE Cardiovascular: AFIB, CAD, hypertension, myocardial infarction, stent placement CABG Respiratory: NONE Gastrointestinal: GERD Hepatic: NONE Renal: NONE Musculoskeletal: chronic back pain, osteoarthritis, LEG SPASMS Psychiatric: NONE Endocrine: diabetes Blood Disorders: NONE Cancer(s): NONE MANAGER UTILITY/Reproductive: UTERINE FIBROIDS Surgical History Surgical History: hysterectomy Family History Relations & Conditions If Any: FATHER FH: [place] (myocardial infarction) SISTER Relation not specified for: FH: breast cancer Psychosocial History Where Do You Live? Home Services at Home: None Smoking Status: Never Smoked Functional Ability ADLs Independent: dressing, eating, toileting, bathing. Ambulation: independent Exam & Diagnostic Data Vital Signs and I&O Vital Signs Date Time Temp Pulse Resp B/P B/P Pulse O2 O2 Flow FiO2 Mean Ox Delivery Rate 08/06 1719 98.1 93 20 134/80 96 Room Air 08/06 1541 98.0 95 18 139/68 97 Room Air 08/06 1142 98.3 93 18 139/81 99 Room Air 08/06 1011 118/74 08/06 0946 179/98 08/06 0921 98.2 106 30 179/98 99 Room Air Intake & Output 08/06 1600 08/06 0800 08/06 0000 08/05 1600 08/05 0800 08/05 0000 Intake Total Output Total Balance Patient 184 lb Weight Physical Exam: Gen: The patient is in no acute distress HEENT: Normal nose, ears, and oropharynx. Pupils equal bilaterally. Conjunctiva normal. Neck: Supple with no JVD, no masses, and no thyromegaly Lungs: Clear to auscultation with normal respiratory effort Heart: RRR, S1, S2, no murmurs. No peripheral edema, 2+ pulses in the lower extremities bilaterally Abdomen: Soft, nontender, no masses. No hepatomegaly. No splenomegaly Extremities: No clubbing or cyanosis. Normal muscle strength in the upper and lower extremities Skin: Normal skin turgor with no skin ulcers or lesions noted. Neuro: Cranial nerves intact. Sensation intact Psych: Alert and oriented x 3 with appropriate affect Labs/Tu Results: Laboratory Tests 08/06 08/06 1730 0915 Chemistry Sodium (137 - 145 mmol/L) 143 Potassium (3.5 - 5.1 mmol/L) 4.2 Chloride (98 - 107 mmol/L) 103 Carbon Dioxide (22 - 30 mmol/L) 26 Anion Gap (5 - 16) 14 BUN (7 - 17 mg/dL) 18 H Creatinine (0.5 - 1.0 mg/dL) 0.9 Estimated GFR (>60 ml/min) > 60 BUN/Creatinine Ratio (7 - 25 %) 20.0 Glucose (65 - 99 mg/dL) 220 H Hemoglobin A1c (4.2 - 5.8 %) Pending Calcium (8.4 - 10.2 mg/dL) 10.2 Magnesium (1.6 - 2.3 mg/dL) 1.7 Total Bilirubin (0.2 - 1.3 mg/dL) 0.5 GGT (12 - 43 U/L) 94 H AST (14 - 36 U/L) 40 H ALT (9 - 52 U/L) 58 H Alkaline Phosphatase (<127 U/L) 144 H Troponin I (< 0.11 ng/ml) < 0.01 < 0.01 Total Protein (6.3 - 8.2 g/dL) 7.9 Albumin (3.5 - 5.0 g/dL) 4.4 Globulin (1.9 - 4.2 gm/dL) 3.5 Albumin/Globulin Ratio (1.1 - 2.2 %) 1.3 Triglycerides (<150 mg/dL) 346 H Cholesterol (<200 MG/DL) 183 LDL Cholesterol, Calc (65 - 129 mg/dL) 57 L HDL Cholesterol (40 - 60 mg/dL) 57 Cholesterol/HDL Ratio (0.00 - 4.23 %) 3 Lipase (23 - 300 U/L) 174 TSH (0.270 - 4.200 uIU/mL) 0.148 L Free T4 (0.78 - 2.44 ng/dL) 2.42 Total T3 (0.97 - 1.69 ng/mL) 1.80 H Coagulation PT (9.4 - 12.5 SEC) 10.6 INR (0.90 - 1.19) 0.97 Hematology CBC w Diff NO MAN DIFF REQ WBC (4.8 - 10.8 /CUMM) 4.8 RBC (4.20 - 5.40 /CUMM) 5.44 H Hgb (12.0 - 16.0 G/DL) 14.3 Hct (37 - 47 %) 44.9 MCV (81.0 - 99.0 FL) 82.5 MCH (27.0 - 31.0 PG) 26.2 L MCHC (33.0 - 37.0 G/DL) 31.8 L RDW (11.5 - 14.5 %) 13.8 Plt Count (130 - 400 /CUMM) 179 MPV (7.4 - 10.4 FL) 9.1 Gran % (42.2 - 75.2 %) 41.5 L Lymphocytes % (20.5 - 51.1 %) 41.1 Monocytes % (1.7 - 9.3 %) 11.6 H Eosinophils % (0 - 5 %) 5.4 H Basophils % (0.0 - 2.0 %) 0.4 Absolute Granulocytes (1.4 - 6.5 /CUMM) 2.0 Absolute Lymphocytes (1.2 - 3.4 /CUMM) 2.0 Absolute Monocytes (0.10 - 0.60 /CUMM) 0.6 Absolute Eosinophils (0.0 - 0.7 /CUMM) 0.3 Absolute Basophils (0.0 - 0.2 /CUMM) 0 Diagnostic Data EKG Results EKG tracings are independently reviewed. EKG from 09 reveals atrial fibrillation with ventricular response of 90, right bundle branch block, left ventricular hypertrophy EKG from 1725 reveals normal sinus rhythm at 90, right bundle branch block, left ventricular hypertrophy Other Results CTA chest: - No evidence of aortic dissection or aneurysm. No pulmonary embolism. - No mass or consolidation in the chest. Scattered bilateral pulmonary nodules measuring up to 3 mm. According to the updated 2017 Fleischner Society recommendations, the advised follow-up imaging for solid nodules < 6 mm is: LOW RISK PATIENT: No routine follow-up. HIGH RISK PATIENT: Optional CT at 12 months. - Beaded morphology of the bilateral renal arteries typical of fibromuscular dysplasia. A left renal stent is present and is patent. 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 This finding requires follow-up. Assessment/Plan Assessment/Plan The patient is a 61-year-old female with history of coronary artery disease, remote history of stent placement, and remote history of atrial fibrillation presenting with chest discomfort, found to be in recurrent atrial fibrillation. Chest discomfort has resolved. The patient converted spontaneously to sinus rhythm in the emergency department. Recommendations: * Monitor on telemetry * Check serial troponin to rule out myocardial infarction * Given the recurrent atrial fibrillation, I recommend long-term anticoagulation. IV heparin has been initiated. This should be changed to p.o. Eliquis prior to discharge. * Echocardiardiogram * Continue aspirin * Continue metoprolol * Continue other cardiac medication Consult Acknowledgment - Thank you for your consult request.
[2017-08-06 20:59] LABS: PTT 83 SEC (25-37)
[2017-08-06 22:35] VITALS: BP 138/76
[2017-08-07 07:13] VITALS: BP 138/86; BP 86/58
[2017-08-07 08:22] LABS: ABSOLUTE BASOPHIL COUNT 0 /CUMM (0.0-0.2); ABSOLUTE EOSINOPHIL COUNT 0.3 /CUMM (0.0-0.7); ABSOLUTE LYMPH COUNT 2.4 /CUMM (1.2-3.4); ABSOLUTE MONOCYTE COUNT 0.5 /CUMM (0.10-0.60); BASOPHIL % 0.7 % (0.0-2.0); EOSINOPHIL % 5.9 % (0-5); GRANULOCYTE % 37.8 % (42.2-75.2); HEMATOCRIT 40.6 % (37-47); MEAN CORPUSCULAR HGB 26.6 PG (27.0-31.0); MEAN PLATELET VOLUME 9.3 FL (7.4-10.4); PLATELET COUNT 173 /CUMM (130-400); RBC DISTRIBUTION WIDTH 13.7 % (11.5-14.5); RED BLOOD CELL CT 4.89 /CUMM (4.20-5.40); WHITE BLOOD CELL COUNT 5.2 /CUMM (4.8-10.8)
--- NOTE | 2017-08-07 08:30 | PN- Housestaff ---
Ugo DAVIS,Samantha 08/07/17 0830: Subjective Follow-up For: paroxysmal A. fib not on anticoagulation chest pain, history of CAD S/P stent and cardiac cath History of hypertension [id number] diabetes mellitus Accidentally discovered Bilateral lung nodule Tele-Events Since Last Visit: Normal sinus rhythm, 76, 0.14, 0.18, BBB Subjective: Patient was seen and examined Review of Systems Constitutional: Reports: see HPI. Objective Last 24 Hrs of Vital Signs/I&O Vital Signs Date Time Temp Pulse Resp B/P B/P Pulse O2 O2 Flow FiO2 Mean Ox Delivery Rate 08/07 1425 98.0 76 20 104/76 96 08/07 0951 138/86 08/07 0951 138/86 08/07 0713 98.2 83 20 138/86 94 Room Air 08/06 2235 98.1 99 20 138/76 96 Room Air 08/06 2010 99 138/76 08/06 2010 99 138/76 08/06 1719 98.1 93 20 134/80 96 Room Air 08/06 1541 98.0 95 18 139/68 97 Room Air Intake & Output 08/07 1600 08/07 0800 08/07 0000 Intake Total 220 104 Output Total Balance 220 104 Intake, IV 104 Intake, Oral 220 Number 0 Bowel Movements Patient 186 lb Weight Weight Bed scale Measurement Method Physical Exam General Appearance: Alert, Oriented X3, Cooperative, No Acute Distress HEENT: Atraumatic, PERRLA, EOMI, Mucous Membr. moist/pink Neck: Supple, No JVD Cardiovascular: Normal S1, Normal S2 Lungs: Clear to Auscultation Neurological: Normal Speech, Strength at 5/5 X4 Ext, Normal Tone, Sensation Intact, Cranial Nerves 3-12 NL, Reflexes 2+ Extremities: No Clubbing, No Cyanosis, No Edema Assessment/Plan Assessment: 61 y/o AA lady w/ a PMH of Afib (not on anticoagulation), CAD w/ PA 6-7yrs ago w / stent placement, HTN, DM and GERD who presented to the ED with a chief complaint of chest tightness which is started around 5 AM on the day of admission, right after when she woke up from sleep. She describes it as the same pain she had 12 years ago when she had PA and stent placed. In the ED her tropes were negative, EKG showed A. fib. Patient converted to normal sinus rhythm Her CHADvasc score is 3 which put her at 3.2% risk of stroke, she falls in the moderatehigh risk and she is a candidate to be started on oral anticoagulants on discharge. In addition the patient is complaining of chronic back pain which was getting worse over the last week, MRI: - No findings identified specific for lumbar spine metastases. No evidence of compression fracture. - Redemonstration of multilevel degenerative spondylotic changes with worsening severe spinal canal stenosis at L4-L5 and worsening mass effect on the exiting L4 nerve roots. - At L3-L4 there is new mass effect on the foraminal segment of the right L3 nerve root. - At L5-S1 there is worsening mass effect on the foraminal segment of the exiting left L5 nerve root and mass effect on the descending S1 nerve root appears stable. Problem list: paroxysmal A. fib not on anticoagulation chest pain, history of CAD S/P stent and cardiac cath History of hypertension Nkh-bfpljmf-bxmijtuwd diabetes mellitus Accidentally discovered Bilateral lung nodule Left renal artery aneurysm, left renal stent Abnormal thyroid function Worsening chronic low back pain, MRI showed worsening mass-effect due to multiple disc prolapse at L3-S1 Plan: Continue to monitor on Continuous telemetry monitoring Vitals every shift Serial tropes and EKG Continue IV heparin drip, plan is to switch her to oral anticoagulant on discharge Start a Decadron taper as per neurosurgery recommendation (discussed over the phone) Start Levemir 10 mg at night Follow-up on repeat thyroid function test, antithyroid peroxidase, antithyroglobulin Hold antidiabetic home meds Fingerstick glucose Insulin sliding scale (most likely will need to be readjusted after the patient was started on Decadron) Hemoglobin A1c is 7.8 CPK was found to be elevated in addition to complaints of leg cramps We will hold statins for now Cardiology recommendation appreciated Endocrinology consult appreciated Neurosurgery consult appreciated Pulmonology consult appreciated Obtain nephrology consult if renal function worsening Continue home meds including metoprolol, statin, amlodipine the patient will likely benefit from a pharmacologic nuclear stress test, this can likely be performed as an outpatient at a later time. Patient is full code DVT prophylaxis with IV heparin drip Consistent carbohydrate diet Problem List: 1. Atrial fibrillation 2. CHEST PAIN 3. Low back pain Pain Ratin Pain Location: lower back Pain Goal: Remain pain free Pain Plan: [facility] [employer] Labs & Rationales: CBC BEP Angel Pickett 08/07/17 1240: Attending MD Review Statement Attending Statement Attending MD Statement: examined this patient, discuss w/resident/PA/PLC ENGINEER, agreed w/resident/PA/PLC ENGINEER, discussed with family, reviewed EMR data (avail), discussed with nursing, discussed with case mgmt, reviewed images, amended to note Attending Assessment/Plan: Patient admitted for chest pain with recurrent atrial fibrillation. Continue telemetry monitoring. Negative serial cardiac enzyems. Cardiology consulted and recommend iv heparin, asa, statin, nitrates. Fibromuscular dysplasia. A left renal stent is present and is patent. Renal artery aneursym monitor for now, Consider nephrology consult if creatinine worsens. Back pain Severe central canal stenosis. MRI pending rule out acute pathology. Migraine headache, continue home meds. gi/dvt prophylaxis full code plan of care d/wed patient and family bedside.
[2017-08-07 08:56] LABS: PTT > 120 SEC (25-37)
--- NOTE | 2017-08-07 09:20 | MRI REPORT ---
EXAMINATION: MR LUMBAR SPINE WITHOUT CONTRAST CLINICAL INFORMATION: New multiple lung nodules. Bone metastasis. COMPARISON: Lumbar spine MRI 01/04/2014. TECHNIQUE: MRI of the lumbar spine was obtained using routine sequences without contrast. FINDINGS: The lumbar vertebral bodies maintain normal heights. There is unchanged grade 1 anterolisthesis of L4 on L5. The bone marrow signal is diffusely heterogeneous but is similar compared to 01/04/2014. Although the STIR sequence is mildly motion degraded no significant bone marrow edema is seen. There is no compression fracture. The distal spinal cord appears normal. The conus medullaris terminates normally at the T12-L1 level. Bilateral renal cysts are noted. The retroperitoneal structures otherwise appear within normal limits. SPINAL LEVELS: L1-L2: No posterior disc abnormality. Bilateral facet arthropathy. No spinal canal stenosis or neural foraminal stenosis. No interval change. L2-L3: Disc bulging with small right foraminal protrusion and bilateral facet arthropathy. No spinal canal stenosis or neural foraminal stenosis. The right foraminal protrusion is new. L3-L4: Disc bulging with central disc protrusion, ligamentum flavum infolding, and severe right and moderate left facet arthropathy resulting in new mild spinal canal stenosis. Moderate right and mild left neural foraminal stenosis with new mass effect on the foraminal segment of the right L3 nerve root. L4-L5: Grade 1 anterolisthesis with posterior unroofing of the disc and underlying disc extrusion with superior migration which in combination with severe facet arthropathy and ligamentum flavum infolding results in worsening severe neural foraminal stenosis with mass effect on the thecal sac and crowding of the cauda equina nerve roots. Severe bilateral neural foraminal stenosis with worsening mass effect on the foraminal segments of both L4 nerve roots. L5-S1: Disc bulging asymmetric to the left and moderate bilateral facet arthropathy resulting in mild mass effect on the descending left S1 nerve root in the subarticular zone and mass effect on the foraminal segment of the exiting left L5 nerve root. These changes have progressed from prior. IMPRESSION: - No findings identified specific for lumbar spine metastases. No evidence of compression fracture. - Redemonstration of multilevel degenerative spondylotic changes with worsening severe spinal canal stenosis at L4-L5 and worsening mass effect on the exiting L4 nerve roots. - At L3-L4 there is new mass effect on the foraminal segment of the right L3 nerve root. - At L5-S1 there is worsening mass effect on the foraminal segment of the exiting left L5 nerve root and mass effect on the descending S1 nerve root appears stable.
--- NOTE | 2017-08-07 11:26 | PN- Cardiology ---
Subjective Subjective: Clinically okay. Maintaining sinus rhythm but continues to be mildly tachycardic at rest. Continues to complain of muscle cramping, especially at nighttime. No further chest discomfort. Objective Vital Signs and I&Os Vital Signs Date Time Temp Pulse Resp B/P B/P Pulse O2 O2 Flow FiO2 Mean Ox Delivery Rate 08/07 0951 138/86 08/07 0951 138/86 08/07 0713 98.2 83 20 138/86 94 Room Air 08/06 2235 98.1 99 20 138/76 96 Room Air 08/06 2010 99 138/76 08/06 2010 99 138/76 08/06 1719 98.1 93 20 134/80 96 Room Air 08/06 1541 98.0 95 18 139/68 97 Room Air 08/06 1142 98.3 93 18 139/81 99 Room Air Intake & Output 08/07 1600 08/07 0800 08/07 0000 08/06 1600 08/06 0800 08/06 0000 Intake Total 220 104 Output Total Balance 220 104 Intake, IV 104 Intake, Oral 220 Number 0 Bowel Movements Patient 186 lb 184 lb Weight Weight Bed scale Measurement Method Physical Exam: General Appearance: well developed/nourished, alert, awake, oriented Head: normal HEENT: Normal Neck: supple, JVP normal, carotid upstrokes normal bilaterally, no masses or thyromegaly Respiratory: chest non-tender, clear to auscultation and percussion bilaterally Cardiovascular: regular rate/rhythm, normal S1, S2, 1/6 systolic murmur Abdomen: normal bowel sounds, soft, non-tender Extremities: normal inspection, no edema Vascular: Pulses are 2+ and equal bilaterally Neurologic: Grossly normal/nonfocal Current Medications: Current Medications Sig/[place] Start time Last Medication Dose Route Stop Time Status Admin Acetaminophen 650 MG Q6P PRN 08/06 1630 AC PO Amlodipine Besylate 5 MG DAILY 08/06 1738 AC 08/07 PO 0951 Aspirin 81 MG DAILY 08/06 1738 AC 08/07 PO 951 Atorvastatin Calcium 80 MG 1700 08/06 1738 AC 08/06 PO 2010 Diclofenac Sodium 1 EDD 4 TIMES/DAY PRN 08/06 2315 AC TOP Duloxetine HCl 30 MG BID 08/06 2100 AC 08/07 PO 52 Heparin Sodium 0 .STK-MED ONE 08/06 1359 DC (Porcine) .ROUTE Heparin Sodium 4,000 UNIT ONCE ONE 08/06 1345 DC 08/06 (Porcine) IV 08/06 1346 1428 Heparin Sodium 25,000 UNIT Q24H 08/06 1345 08/06 (Porcine) IV 1428 Sodium Chloride 500 ML Insulin Aspart 0 TIDAC 08/07 0800 08/07 SC 0924 Lorazepam 0 .STK-MED ONE 08/06 1635 DC .ROUTE Lorazepam 0.5 MG ONCE ONE 08/06 1600 TN 08/06 IV 08/06 1601 1636 Lorazepam 0 .STK-MED ONE 08/06 1359 DC .ROUTE Lorazepam 0.5 MG ONCE ONE 08/06 1345 DC 08/06 IV 08/06 1346 1428 Metoprolol Tartrate 100 MG BID 08/06 2100 08/07 PO 0951 Morphine Sulfate 2 MG Q6-PRN PRN 08/06 1715 08/07 IV 0925 Nitroglycerin 0.4 MG 08/07 [facility] Nitroglycerin 0.4 MG DAILY 08/06 1717 [place] 08/06 [facility] 2009 Omeprazole 40 MG DAILY 08/06 1742 08/07 PO 0641 Oxycodone/ 1 TAB Q6P PRN 08/06 1630 08/07 Acetaminophen PO 1046 Polyethylene Glycol 17 GM AT BEDTIME 08/06 2100 PO Tizanidine HCl 2 MG QPM PRN 08/06 1745 08/06 PO 2010 Results Last 48 Hrs of Labs/Mics: Laboratory Tests 08/07/17 0655: Anion Gap 9, Estimated GFR > 60, BUN/Creatinine Ratio 22.5, Total Bilirubin 0.6, Direct Bilirubin 0.2, AST 40 H, ALT 49, Alkaline Phosphatase 108, Total Protein 7.2, Albumin 3.9, APTT > 120 *H, CBC w Diff NO MAN DIFF REQ, RBC 4.89, MCV 83.0, MCH 26.6 L, MCHC 32.0 L, RDW 13.7, MPV 9.3, Gran % 37.8 L, Lymphocytes % 46.3 , Monocytes % 9.3, Eosinophils % 5.9 H, Basophils % 0.7, Absolute Granulocytes 2.0, Absolute Lymphocytes 2.4, Absolute Monocytes 0.5, Absolute Eosinophils 0.3, Absolute Basophils 0 08/07/17 0300: Urine Color YEL, Urine Clarity CLEAR, Urine pH 6.0, Ur Specific [place] 1.020, Urine Protein NEG, Urine Ketones NEG, Urine Nitrite NEG, Urine Bilirubin NEG, Urine Urobilinogen 0.2, Ur Leukocyte Esterase NEG, Ur Microscopic EXAM NOT REQUIRED, Urine Hemoglobin NEG, Urine Glucose >=1000 H 08/06/17 2330: Troponin I < 0.01 08/06/17 2024: APTT 83 H 08/06/17 1730: Troponin I < 0.01, Free T4 2.42, Total T3 1.80 H 08/06/17 1710: Troponin I Cancelled 08/06/17 0915: Anion Gap 14, Estimated GFR > 60, BUN/Creatinine Ratio 20.0, Glucose 220 H, Hemoglobin A1c 7.8 H, Calcium 10.2, Magnesium 1.7, Total Bilirubin 0.5, GGT 94 H, AST 40 H, ALT 58 H, Alkaline Phosphatase 144 H, Troponin I < 0.01, Total Protein 7.9, Albumin 4.4, Globulin 3.5, Albumin/Globulin Ratio 1.3, Triglycerides 346 H, Cholesterol 183, LDL Cholesterol, Calc 57 L, HDL Cholesterol 57, Cholesterol/HDL Ratio 3, Lipase 174, TSH 0.148 L, PT 10.6, INR 0.97, CBC w Diff NO MAN DIFF REQ, RBC 5.44 H, MCV 82.5, MCH 26.2 L, MCHC 31.8 L, RDW 13.8, MPV 9.1, Gran % 41.5 L, Lymphocytes % 41.1, Monocytes % 11.6 H, Eosinophils % 5.4 H, Basophils % 0.4, Absolute Granulocytes 2.0, Absolute Lymphocytes 2.0, Absolute Monocytes 0.6, Absolute Eosinophils 0.3, Absolute Basophils 0 Assessment/Plan Assessment/Plan Assessment: 1. Paroxysmal atrial for ablation with rapid ventricular rate-now in sinus rhythm 2. History of coronary artery disease; status post prior stent 3. Chest discomfort 4. Low TSH with elevated T3-in view of the patient's paroxysmal atrial fibrillation, consider baseline endocrinology input. 5. Prominent muscle cramping Recommendations: -Continue to monitor on telemetry for now -Serial troponins have been negative -IV heparin to be transitioned to Eliquis at some point prior to discharge -Echocardiogram pending -In view of paroxysmal atrial fibrillation and thyroid profile abnormalities, consider baseline endocrinology input -Continue other cardiac medicines as requested by Dr. Millard -At some point, the patient will likely benefit from a pharmacologic nuclear stress test, this can likely be performed as an outpatient at a later time. -Further plans after the above. -In view of the patient's symptoms of prominent muscle cramping, especially at night, consider holding statin and for now to see if the symptoms resolve and may be statin related. Check baseline CPK Continue telemetry? Yes
--- NOTE | 2017-08-07 12:45 | Cons- Endocrinology ---
General Information and HPI Consulting Request Date of Consult: 08/07/17 Requested By: medical team Reason for Consult: abnormal thyroid tests Source of Information: patient, old records Exam Limitations: no limitations History of Present Illness: This 61-year-old -[place] woman has a known history of paroxysmal atrial fibrillation. She came to the emergency room because of pain and tightness in her chest. She was found to be in atrial fibrillation. Thyroid function tests have been done and show a TSH of 0.148 which is low. In speaking with the patient she states she has not been told of thyroid disease before. She does perspire but episodically more like hot flashes. She denies any tremor of her hands. There is no weight loss. There is no pressure sensation in her neck. Review of the data from the [facility] computer, however, reveals that the patient's TSH was 9.3 in 2012 with a free T4 0.77. In 2013 the patient's TSH was 4.78. At that time the free T4 was not measured. The patient also has a history of diabetes mellitus type 2. When she was last here with swelling of her tongue she was on prednisone and had to go on insulin for a while. She states that prior to admission she was no longer an insulin but was taking Invokana 300 mg daily. Patient's hemoglobin A1c on admission is 7.8%. The patient is on coverage with [employer] before meals. Allergies/Medications Allergies: Coded Allergies: lisinopril (Severe, TONGUE SWELLING 12/09/15) Home Med List: Acetaminophen (Tylenol Arthritis) 650 MG TABLET.ER 1 TAB PO DAILY PRN PAIN ( Reported) Amlodipine Besylate 5 MG TABLET 1 TAB PO DAILY HEART (Reported) Aspirin (Children's Aspirin) 81 MG TAB.CHEW 1 TAB PO DAILY HEART HEALTH ( Reported) Atorvastatin Calcium (Lipitor) 80 MG TABLET 1 TAB PO DAILY CHOLESTEROL ( Reported) Benzonatate (Tessalon Perle) 100 MG CAPSULE 1 CAP PO TID PRN COUGH Canagliflozin (Invokana) 300 MG TABLET 1 TAB PO DAILY DIABETES (Reported) Cholecalciferol (Vitamin D3) 1,000 UNIT TABLET 1 TAB PO DAILY SUPPLEMENT ( Reported) Clotrimazole/Betamethasone Dip (Clotrimazole-Betamethasone Crm) 1 %-0.05 % CREAM..G. 1 EDD TOP BID UNKNOWN (Reported) apply to affected area(s) Cyanocobalamin (Vitamin B-12) (Vitamin B-12) 100 MCG TABLET 1 TAB PO DAILY VITAMIN SUPPORT (Reported) Duloxetine Hydrochloride (Cymbalta) 30 MG CAPSULE.DR 1 CAP PO BID NERVE PAIN (Reported) Ferrous Sulfate (Feosol) 325 MG (65 MG IRON) TABLET 1 TAB PO DAILY IRON, VITAMIN (Reported) Hydrocodone/Acetaminophen (Hydrocodon-Acetaminophen 5-325) 1 EACH TABLET 1 TAB PO PRN PAIN (Reported) Ibuprofen 600 MG TABLET 1 TAB PO BID PAIN (Reported) with food Lactobacillus Combination No.4 (Probiotic) 3 BILLION CELL CAPSULE 1 CAP PO DAILY GI (Reported) Linaclotide (Linzess) 145 MCG CAPSULE 1 CAP PO DAILY GI (Reported) Metoprolol Tartrate 100 MG TABLET 1 TAB PO BID HEART (Reported) Omeprazole 40 MG CAPSULE.DR 1 CAP PO BID GI (Reported) Ondansetron (Zofran Odt) 4 MG TAB.RAPDIS 1 TAB SL TID PRN NAUSEA/VOMITING ( Reported) Sumatriptan Succinate 100 MG TABLET 1 TAB PO DAILY PRN HEADACHE (Reported) may repeat in 2 hours; do not exceed 200 mg in 24 hours Tizanidine HCl 2 MG TABLET 1 TAB PO QPMP PRN PAIN (Reported) Tramadol HCl 50 MG TABLET 1 TAB PO TID PAIN (Reported) Review of Systems Review of Systems Constitutional: Denies: chills, fever. Cardiovascular: Reports: chest pain. Respiratory: Reports: short of breath. GI: Denies: abdominal pain. Skin: Reports: no symptoms. 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 Home Services at Home: None Smoking Status: Never Smoked Functional Ability ADLs Independent: dressing, eating, toileting, bathing. Ambulation: independent Exam & Diagnostic Data Last 24 Hrs of Vital Signs/I&O Vital Signs Date Time Temp Pulse Resp B/P B/P Pulse O2 O2 Flow FiO2 Mean Ox Delivery Rate 08/07 0951 138/86 08/07 0951 138/86 08/07 0713 98.2 83 20 138/86 94 Room Air 08/06 2235 98.1 99 20 138/76 96 Room Air 08/06 2010 99 138/76 08/06 2010 99 138/76 08/06 1719 98.1 93 20 134/80 96 Room Air 08/06 1541 98.0 95 18 139/68 97 Room Air Intake & Output 08/07 1600 08/07 0800 08/07 0000 Intake Total 220 104 Output Total Balance 220 104 Intake, IV 104 Intake, Oral 220 Number 0 Bowel Movements Patient 186 lb Weight Weight Bed scale Measurement Method Vital Signs Date Time Temp Pulse Resp B/P B/P Pulse O2 O2 Flow FiO2 Mean Ox Delivery Rate 08/07 0951 138/86 08/07 0951 138/86 08/07 0713 98.2 83 20 138/86 94 Room Air 08/06 2235 98.1 99 20 138/76 96 Room Air 08/06 2010 99 138/76 08/06 2010 99 138/76 08/06 1719 98.1 93 20 134/80 96 Room Air 08/06 1541 98.0 95 18 139/68 97 Room Air Intake & Output 08/07 1600 08/07 0800 08/07 0000 Intake Total 220 104 Output Total Balance 220 104 Intake, IV 104 Intake, Oral 220 Number 0 Bowel Movements Patient 186 lb Weight Weight Bed scale Measurement Method Physical Exam General Appearance: alert, awake, comfortable Eyes: Bilateral: normal appearance. Neck: normal inspection Respiratory: normal breath sounds Cardiovascular: regular rate/rhythm Gastrointestinal: normal bowel sounds, soft Extremities: normal inspection Labs/Tu Results: Laboratory Tests 08/07 08/07 1240 0655 Chemistry Sodium (137 - 145 mmol/L) 141 Potassium (3.5 - 5.1 mmol/L) 4.0 Chloride (98 - 107 mmol/L) 103 Carbon Dioxide (22 - 30 mmol/L) 29 Anion Gap (5 - 16) 9 BUN (7 - 17 mg/dL) 18 H Creatinine (0.5 - 1.0 mg/dL) 0.8 Estimated GFR (>60 ml/min) > 60 BUN/Creatinine Ratio (7 - 25 %) 22.5 Total Bilirubin (0.2 - 1.3 mg/dL) 0.6 Direct Bilirubin (< 0.4 mg/dL) 0.2 AST (14 - 36 U/L) 40 H ALT (9 - 52 U/L) 49 Alkaline Phosphatase (<127 U/L) 108 Total Protein (6.3 - 8.2 g/dL) 7.2 Albumin (3.5 - 5.0 g/dL) 3.9 Coagulation APTT (25 - 37 SEC) Pending > 120 *H Hematology CBC w Diff NO MAN DIFF REQ WBC (4.8 - 10.8 /CUMM) 5.2 RBC (4.20 - 5.40 /CUMM) 4.89 Hgb (12.0 - 16.0 G/DL) 13.0 Hct (37 - 47 %) 40.6 MCV (81.0 - 99.0 FL) 83.0 MCH (27.0 - 31.0 PG) 26.6 L MCHC (33.0 - 37.0 G/DL) 32.0 L RDW (11.5 - 14.5 %) 13.7 Plt Count (130 - 400 /CUMM) 173 MPV (7.4 - 10.4 FL) 9.3 Gran % (42.2 - 75.2 %) 37.8 L Lymphocytes % (20.5 - 51.1 %) 46.3 Monocytes % (1.7 - 9.3 %) 9.3 Eosinophils % (0 - 5 %) 5.9 H Basophils % (0.0 - 2.0 %) 0.7 Absolute Granulocytes (1.4 - 6.5 /CUMM) 2.0 Absolute Lymphocytes (1.2 - 3.4 /CUMM) 2.4 Absolute Monocytes (0.10 - 0.60 /CUMM) 0.5 Absolute Eosinophils (0.0 - 0.7 /CUMM) 0.3 Absolute Basophils (0.0 - 0.2 /CUMM) 0 08/07 08/06 08/06 0300 2330 2024 Chemistry Troponin I (< 0.11 ng/ml) < 0.01 Coagulation APTT (25 - 37 SEC) 83 H Urines Urine Color (YEL,AMB,STR) YEL Urine Clarity (CLEAR) CLEAR Urine pH (5.0 - 8.0) 6.0 Ur Specific [place] (1.001 - 1.035) 1.020 Urine Protein (NEG,<30 MG/DL) NEG Urine Ketones (NEG) NEG Urine Nitrite (NEG) NEG Urine Bilirubin (NEG) NEG Urine Urobilinogen (0.1 - 1.0 EU/dl) 0.2 Ur Leukocyte Esterase (NEG) NEG Ur Microscopic EXAM NOT REQUIRED Urine Hemoglobin (NEG) NEG Urine Glucose (N MG/DL) >=1000 H 08/06 08/06 08/06 1730 1710 0915 Chemistry Sodium (137 - 145 mmol/L) 143 Potassium (3.5 - 5.1 mmol/L) 4.2 Chloride (98 - 107 mmol/L) 103 Carbon Dioxide (22 - 30 mmol/L) 26 Anion Gap (5 - 16) 14 BUN (7 - 17 mg/dL) 18 H Creatinine (0.5 - 1.0 mg/dL) 0.9 Estimated GFR (>60 ml/min) > 60 BUN/Creatinine Ratio (7 - 25 %) 20.0 Glucose (65 - 99 mg/dL) 220 H Hemoglobin A1c (4.2 - 5.8 %) 7.8 H Calcium (8.4 - 10.2 mg/dL) 10.2 Magnesium (1.6 - 2.3 mg/dL) 1.7 Total Bilirubin (0.2 - 1.3 mg/dL) 0.5 GGT (12 - 43 U/L) 94 H AST (14 - 36 U/L) 40 H ALT (9 - 52 U/L) 58 H Alkaline Phosphatase (<127 U/L) 144 H Troponin I (< 0.11 ng/ml) < 0.01 Cancelled < 0.01 Total Protein (6.3 - 8.2 g/dL) 7.9 Albumin (3.5 - 5.0 g/dL) 4.4 Globulin (1.9 - 4.2 gm/dL) 3.5 Albumin/Globulin Ratio (1.1 - 2.2 %) 1.3 Triglycerides (<150 mg/dL) 346 H Cholesterol (<200 MG/DL) 183 LDL Cholesterol, Calc (65 - 129 mg/dL) 57 L HDL Cholesterol (40 - 60 mg/dL) 57 Cholesterol/HDL Ratio (0.00 - 4.23 %) 3 Lipase (23 - 300 U/L) 174 TSH (0.270 - 4.200 uIU/mL) 0.148 L Free T4 (0.78 - 2.44 ng/dL) 2.42 Total T3 (0.97 - 1.69 ng/mL) 1.80 H Coagulation PT (9.4 - 12.5 SEC) 10.6 INR (0.90 - 1.19) 0.97 Hematology CBC w Diff NO MAN DIFF REQ WBC (4.8 - 10.8 /CUMM) 4.8 RBC (4.20 - 5.40 /CUMM) 5.44 H Hgb (12.0 - 16.0 G/DL) 14.3 Hct (37 - 47 %) 44.9 MCV (81.0 - 99.0 FL) 82.5 MCH (27.0 - 31.0 PG) 26.2 L MCHC (33.0 - 37.0 G/DL) 31.8 L RDW (11.5 - 14.5 %) 13.8 Plt Count (130 - 400 /CUMM) 179 MPV (7.4 - 10.4 FL) 9.1 Gran % (42.2 - 75.2 %) 41.5 L Lymphocytes % (20.5 - 51.1 %) 41.1 Monocytes % (1.7 - 9.3 %) 11.6 H Eosinophils % (0 - 5 %) 5.4 H Basophils % (0.0 - 2.0 %) 0.4 Absolute Granulocytes (1.4 - 6.5 /CUMM) 2.0 Absolute Lymphocytes (1.2 - 3.4 /CUMM) 2.0 Absolute Monocytes (0.10 - 0.60 /CUMM) 0.6 Absolute Eosinophils (0.0 - 0.7 /CUMM) 0.3 Absolute Basophils (0.0 - 0.2 /CUMM) 0 Assessment/Plan Assessment/Plan This 61-year-old woman was admitted with chest discomfort and atrial fibrillation. She has a previous history of paroxysmal atrial fibrillation. Her TSH is low on admission at 0.148. She denies any previous history of thyroid disease although she has had some previous abnormalities of her thyroid tests that are available in the [facility] with mostly a mildly elevated TSH. The patient needs further evaluation. I would repeat her TSH, free T4, and total T3 today. In addition we should measure antithyroglobulin and antithyroid peroxidase. We should also do a thyroid-stimulating immunoglobulin level. With regard to her diabetes I would continue to cover her with NovoLog before meals. NovoLog coverage before meals should be 100-150 give 2 units NovoLog, 151-200 give 3 units NovoLog, 201-250 give 4 units NovoLog, 251-300 give 5 units NovoLog, 301 350 give 6 units NovoLog. We will not begin any basal insulin at this time as her fasting blood sugar was in a good range. Consult Acknowledgment - Thank you for your consult request.
[2017-08-07 13:24] LABS: PTT 63 SEC (25-37)
[2017-08-07 14:25] VITALS: BP 104/76
--- NOTE | 2017-08-07 15:10 | Discharge Summary ---
Visit Information Visit Dates Admission Date: 08/06/17 Discharge Date: 08/09/17 Hospital Course Course Attending Physician: Angel Pickett MD Primary Care Physician: Jeniffer Baeza MD [facility] Course: 61 y/o AA lady w/ a PMH of Afib (not on anticoagulation), CAD w/ [place] 6-7yrs ago w / stent placement, HTN, DM and GERD who presented to the ED with a chief complaint of chest tightness which is started around 5 AM right after when she woke up from sleep. The patient described as tightness in the mid chest radiating to the left shoulder 10/10 in severity, was associated with sweating, dizziness, nausea, shortness of breath. Patient follow-up with Dr. Millard and the last time she had an appointment was 6 weeks ago when he change the dose of Lipitor to 80 mg daily, and he added amlodipine 5 mg p.o. Patient also endorses chronic leg cramps. In the ED patient received sublingual nitroglycerin, she was found to have a paroxysm of A. fib, her plate drying machine tender Dr. Millard was contacted and she was a started on IV heparin drip Vitals on admission: Blood pressure 179/98, pulse 106, temperature 98.2, pulse ox 99 on room air Labs on admission: WBC 4.8, hemoglobin 14.3, platelets 179, BEP showed sodium 143, potassium 4.2, BUN 18, creatinine 0.9, glucose 220, troponin 0.01 CTA chest: - No evidence of aortic dissection or aneurysm. No pulmonary embolism. - No mass or consolidation in the chest. Scattered bilateral pulmonary nodules measuring up to 3 mm. According to the updated 2017 Fleischner Society recommendations, the advised follow-up imaging for solid nodules < 6 mm is: LOW RISK PATIENT: No routine follow-up. HIGH RISK PATIENT: Optional CT at 12 months. - Beaded morphology of the bilateral renal arteries typical of fibromuscular dysplasia. A left renal stent is present and is patent. 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 This finding requires follow-up. Lumbar spine CT: 1. The study redemonstrates the grade 1 anterolisthesis of L4 on L5 secondary to severe bilateral facet arthropathy. There are bilateral foraminal disc protrusions impinging on the exiting L4 nerve roots and there is severe central stenosis. 2. There is a new right foraminal disc protrusion at L3-L4 with impingement on the exiting right L3 nerve root. There is moderate central stenosis and subarticular recess narrowing. 3. There is a left foraminal disc osteophyte complex at L5-S1 with impingement on the exiting left L5 nerve root, unchanged. 4. There are no acute fractures or subluxations. Bone mineralization appears within normal limits. Lumbar spine MRI: - No findings identified specific for lumbar spine metastases. No evidence of compression fracture. - Redemonstration of multilevel degenerative spondylotic changes with worsening severe spinal canal stenosis at L4-L5 and worsening mass effect on the exiting L4 nerve roots. - At L3-L4 there is new mass effect on the foraminal segment of the right L3 nerve root. - At L5-S1 there is worsening mass effect on the foraminal segment of the exiting left L5 nerve root and mass effect on the descending S1 nerve root appears stable. Echocardiogram: Normal left ventricular ejection fraction visually estimated at > 60%. Abnormal relaxation filling pattern of the left ventricle for age (stage 1 diastolic dysfunction). Trace mitral regurgitation. Mild tricuspid regurgitation. Trace pulmonic regurgitation. Thyroid ultrasound: Heterogeneous thyroid gland. Slightly enlarged right lobe. Question solitary hyperechoic nodule exophytic to the inferior left lobe. Patient was admitted to telemetry for treatment of the following conditions: Paroxysmal atrial fibrillation: In the ED the patient was found to be in paroxysmal A. fib, she was initially started on IV heparin drip which was switch her to p.o. Eliquis on discharge Chest pain: mostly a typical angina rule out ACS: Serial troponin EKG ruled out ACS, CTA ruled out PE, she was discharged on sublingual nitroglycerin as needed for chest pain Hypertension: She was kept on her home meds Diabetes type 2: Patient was monitored with fingerstick glucose, she was treated with insulin sliding scale, Levemir 10 units twice daily daily, she was discharged on the same insulin regimen she was on while hospitalized, her oral antidiabetic's were discontinued New finding of bilateral lung nodules: Pulmonary were on board and they recommended outpatient follow-up, Bilateral renal arteries fibromuscular dysplasia:: His kidney function was stable LE muscle spasm chronic-: -patient denied weakness, numbness in between attacks Disc prolapse: CT and MRI revealed severe disc prolapse at L3-L4, L5-S1, neurosurgery was consulted and recommended starting the patient on Decadron taper, which is a patient was discharged on, she was advised to follow-up with her neuro surgeon outpatient. In addition the patient was also complaining of bilateral leg cramps, her statin dose was recently increased to 80 mg. Cardiology recommended discontinuing her statin as it might be because of her leg cramps. And follow-up outpatient Hyperthyroidism: TSH 0.045, total T3 1.74, free T4 1.7, thyroid globulin antibody and thyroid peroxidase were normal ultrasound thyroid showed:Heterogeneous thyroid gland. Slightly enlarged right lobe. Question solitary hyperechoic nodule exophytic to the inferior left lobe. The patient was started on methimazole tablets 2.5 mg daily and was given a endocrinology referral Full code Consistent carbohydrate diet DVT prophylaxis with heparin Allergies: Coded Allergies: lisinopril (Severe, TONGUE SWELLING 12/09/15) Disposition Summary Disposition Principal Diagnosis: Paroxysmal A. fib Hypothyroidism Additional Diagnosis: Accidentally discovered bilateral lung nodules Yna-rbzhovm-fhlllfvgu diabetes Discharge Disposition: home or self care Discharge Instructions General Discharge Information Code Status: Full Code Patient's Diet: consistent carbohydrate Patient's Activity: As tolerated Follow-Up Instructions/Appts: 1please follow-up with your PCP in 1 week of discharge 2please follow-up with coal tram driver in 1 week of discharge 3please follow-up with your plate drying machine tender in 1 week of discharge 4please follow-up with your neurovascular surgeon in 1 week of discharge Medications at Discharge Discharge Medications: Stop taking the following medications: Canagliflozin (Invokana) 300 MG TABLET ORAL DAILY Qty = 30 Atorvastatin Calcium (Lipitor) 80 MG TABLET ORAL DAILY Ondansetron (Zofran Odt) 4 MG TAB.RAPDIS SUBLINGUAL THREE TIMES DAILY as needed for NAUSEA/VOMITING Continue taking these medications: Aspirin (Children's Aspirin) 81 MG TAB.CHEW 1 Tablet ORAL DAILY Comments: Last Taken:08/09/17 Time:0849 Tramadol HCl (Tramadol HCl) 50 MG TABLET 1 Tablet ORAL THREE TIMES DAILY Comments: NOT GIVEN IN HOSPITAL Duloxetine Hydrochloride (Cymbalta) 30 MG CAPSULE.DR 1 Capsule ORAL TWICE DAILY Comments: Last Taken:08/09/17 Time:0849 Sumatriptan Succinate (Sumatriptan Succinate) 100 MG TABLET 1 Tablet ORAL DAILY as needed for HEADACHE Qty = 9 Instructions: may repeat in 2 hours; do not exceed 200 mg in 24 hours Comments: NOT GIVEN IN HOSPITAL Tizanidine HCl (Tizanidine HCl) 2 MG TABLET 1 Tablet ORAL Every night as needed as needed for PAIN Qty = 30 Comments: Last Taken:08/06/17 Time:1745 Linaclotide (Linzess) 145 MCG CAPSULE 1 Capsule ORAL DAILY Comments: NOT GIVEN IN HOSPITAL Hydrocodone/Acetaminophen (Hydrocodon-Acetaminophen 5-325) 1 EACH TABLET 1 Tablet ORAL as needed for PAIN Comments: Last Taken:08/09/17 Time:0651 Omeprazole (Omeprazole) 40 MG CAPSULE.DR 1 Capsule ORAL TWICE DAILY Comments: Last Taken:08/09/17 Time:0849 Ibuprofen (Ibuprofen) 600 MG TABLET 1 Tablet ORAL TWICE DAILY Instructions: with food Comments: NOT GIVEN IN HOSPITAL Cholecalciferol (Vitamin D3) 1,000 UNIT TABLET 1 Tablet ORAL DAILY Comments: NOT GIVEN IN HOSPITAL Ferrous Sulfate (Feosol) 325 MG (65 MG IRON) TABLET 1 Tablet ORAL DAILY Comments: NOT GIVEN IN HOSPITAL Benzonatate (Tessalon Perle) 100 MG CAPSULE 1 Capsule ORAL THREE TIMES DAILY as needed for COUGH Qty = 30 Comments: NOT GIVEN IN HOSPITAL Acetaminophen (Tylenol Arthritis) 650 MG TABLET.ER 1 Tablet ORAL DAILY as needed for PAIN Comments: Last Taken:08/08/17 Time:2134 Clotrimazole/Betamethasone Dip (Clotrimazole-Betamethasone Crm) 1 %-0.05 % CREAM..G. 1 Application On the skin TWICE DAILY Qty = 30 Instructions: apply to affected area(s) Comments: NOT GIVEN IN HOSPITAL Lactobacillus Combination No.4 (Probiotic) 3 BILLION CELL CAPSULE 1 Capsule ORAL DAILY Comments: NOT GIVEN IN HOSPITAL Metoprolol Tartrate (Metoprolol Tartrate) 100 MG TABLET 1 Tablet ORAL TWICE DAILY Qty = 180 Comments: Last Taken:08/09/17 Time:0849 Cyanocobalamin (Vitamin B-12) (Vitamin B-12) 100 MCG TABLET 1 Tablet ORAL DAILY Comments: NOT GIVEN IN HOSPITAL Amlodipine Besylate (Amlodipine Besylate) 5 MG TABLET 1 Tablet ORAL DAILY Qty = 90 Comments: Last Taken:08/09/17 Time:0849 Start taking the following new medications: Apixaban (Eliquis) 5 MG TABLET 5 Milligram ORAL TWICE DAILY Qty = 60 No Refills Comments: Last Taken:08/09/17 Time:0849 Gabapentin (Gabapentin) 300 MG CAPSULE 300 Milligram ORAL Every night Qty = 30 No Refills Comments: Last Taken:08/08/17 Time:2136 Dexamethasone (Dexamethasone) 4 MG TABLET 4 Milligram ORAL EVERY SIX HOURS Qty = 4 No Refills Instructions: PLEASE TAKE 1 TAB Q 6 ON 08/09 Comments: NOT GIVEN IN HOSPITAL Dexamethasone (Dexamethasone) 2 MG TABLET 2 Milligram ORAL EVERY SIX HOURS Qty = 8 No Refills Instructions: PLEASE TAKE 1 TAB 2 MG Q 6 HRS ON 08/10 AND 08/11 Comments: NOT GIVEN IN HOSPITAL Dexamethasone (Dexamethasone) 2 MG TABLET 2 Milligram ORAL EVERY 12 HOURS Qty = 4 No Refills Instructions: TAKE 1 TAB Q 12 ON 08/12, 08/13 Dexamethasone (Dexamethasone) 2 MG TABLET 2 Milligram ORAL DAILY Qty = 2 No Refills Instructions: TAKE ONE TAB DAILY ON 08/14 AND 08/15 Comments: NOT GIVEN IN HOSPITAL Methimazole (Tapazole) 5 MG TABLET 2.5 Milligram ORAL DAILY Qty = 30 No Refills Comments: Last Taken:08/09/17 Time:0850 Insulin Detemir (Levemir) 100 UNIT/ML VIAL 10 Units Inject into fatty tissue TWICE DAILY Qty = 30 No Refills Comments: Last Taken:08/09/17 Time:0845 Insulin Aspart (Novolog) 100 UNIT/ML VIAL 1 Units Inject into fatty tissue 3 TIMES DAILY BEFORE MEALS Qty = 30 No Refills Instructions: < 80 MG INITIATE HYPOGLYCEMIA 80-99 NO COVERAGE 100-150 TWO UNITS 151-200 THREE UNITS 201-250 FOUR UNITS 251-300 FIVE UNITS 301-350 SIX UNITS MORE THAN 400 SIX UNITS AND CALL MD Comments: Last Taken:08/09/17 Time:1203 Nitroglycerin (Nitrostat) 0.4 MG TAB.SUBL 1 Tablet SUBLINGUAL As Directed as needed for CHEST PAIN Qty = 100 No Refills Instructions: 1st sign of attack; may repeat every 5 minutes until relief; if pain persists after 3 tablets in 15 minutes, prompt medical att Copies To: Aryan DAVIS,Jeniffer Attending MD Review Statement Documenting Attending: Angel Pickett MD Other Findings: Discharging physician Dr David Peter MD.
--- NOTE | 2017-08-07 15:57 | PN- Neurosurgical ---
See Addendum Surgical Brief Attending Note Brief Attending Note: This 61 year old AA female with past medical history of paroxysmal atrial fibrillation (not on a/c prior to admission), CAD w/ CT 6-7yrs ago w/ stent placement, HTN, DM and GERD, presented to the ED yesterday with atypical chest pain rule out ACS. She was started on IV heparin drip due to her recurrent afib, with recommendations for continued anticoagulation by cardiology. She had a CT scan and MRI in the work up of lung nodules, which identified spinal stenosis of L3/4, L4/5, L5/S1. The CT scan noted bilateral foraminal disc protrusions on the exiting L4 nerve root, right foraminal disc protrusion at L3/ 4 with impingement on exiting right L3 nerve root, and osteophyte complex at L5/ S1 with impingement on the exiting left L5 nerve root. The images of the lumbar spine did not show any findings specific for lumbar spine metastases. She was previously getting injections by a doctor in [place], but she has not had an injection in about 2 years and states the injections did not help her for very long. She has had conversations with this doctor about surgical options. Given that she is now anticoagulated, would recommend outpatient follow up with either her established ortho specialist or if she chooses to seek new care. For now, recommends a steroid taper and gabapentin 300 mg at night, which the medical team has already ordered. There is no acute indication for surgery. will d/w
[2017-08-07 22:24] VITALS: BP 130/76
[2017-08-08 02:32] LABS: PTT 78 SEC (25-37)
[2017-08-08 06:54] VITALS: BP 158/88
[2017-08-08 07:46] LABS: ABSOLUTE BASOPHIL COUNT 0 /CUMM (0.0-0.2); ABSOLUTE EOSINOPHIL COUNT 0 /CUMM (0.0-0.7); ABSOLUTE GRANULOCYTE CT 5.5 /CUMM (1.4-6.5); ABSOLUTE LYMPH COUNT 1.5 /CUMM (1.2-3.4); ABSOLUTE MONOCYTE COUNT 0.2 /CUMM (0.10-0.60); BASOPHIL % 0.3 % (0.0-2.0); EOSINOPHIL % 0.2 % (0-5); HEMATOCRIT 41.7 % (37-47); MEAN CORPUSCULAR HGB 26.4 PG (27.0-31.0); MEAN CORPUSCULAR HGB CONC 31.9 G/DL (33.0-37.0); MEAN CORPUSCULAR VOLUME 82.9 FL (81.0-99.0); PLATELET COUNT 185 /CUMM (130-400); RBC DISTRIBUTION WIDTH 13.1 % (11.5-14.5); RED BLOOD CELL CT 5.03 /CUMM (4.20-5.40); WHITE BLOOD CELL COUNT 7.3 /CUMM (4.8-10.8)
[2017-08-08 08:06] LABS: GRANULOCYTE % 75.9 % (42.2-75.2)
--- NOTE | 2017-08-08 09:17 | PN- Housestaff ---
See Addendum Subjective Follow-up For: paroxysmal A. fib not on anticoagulation chest pain, history of CAD S/P stent and cardiac cath History of hypertension Qfg-hvfdcpg-onvuxmiup diabetes mellitus Accidentally discovered Bilateral lung nodule Tele-Events Since Last Visit: Normal sinus rhythm with rate control in 80s Subjective: Patient was seen and examined this morning, sitting in the chair, able to extend her back. She reported significant improvement of the low back pain after starting Decadron. Vital signs are stable. No overnight events. Review of Systems Constitutional: Reports: see HPI. Objective Last 24 Hrs of Vital Signs/I&O Vital Signs Date Time Temp Pulse Resp B/P B/P Pulse O2 O2 Flow FiO2 Mean Ox Delivery Rate 08/08 0847 90 116/82 08/08 0846 90 116/82 08/08 0654 98.0 89 18 158/88 94 Room Air 08/07 2224 98.9 85 24 130/76 96 08/07 2146 76 104/76 08/07 1425 98.0 76 20 104/76 96 Intake & Output 08/08 1600 08/08 0800 08/08 0000 Intake Total 385 260 Output Total Balance 385 260 Intake, IV 135 60 Intake, Oral 250 200 Patient 84.907 kg Weight Physical Exam General Appearance: Alert, Oriented X3, Cooperative, No Acute Distress Skin: No Rashes, No Breakdown, No Significant Lesion Skin Temp/Moisture Exam: Warm/Dry HEENT: Atraumatic, PERRLA, EOMI, Mucous Membr. moist/pink Neck: Supple Cardiovascular: Regular Rate, Normal S1, Normal S2, No Murmurs Lungs: Clear to Auscultation, Normal Air Movement Abdomen: Normal Bowel Sounds, Soft, No Tenderness, No Hepatospenomegaly, No Masses Neurological: Normal Gait, Normal Speech, Strength at 5/5 X4 Ext, Normal Tone, Sensation Intact, Cranial Nerves 3-12 NL, Reflexes 2+ Extremities: No Clubbing, No Cyanosis, No Edema, Normal Pulses, No Tenderness/ Swelling Current Medications: Current Medications Sig/Karmen Start time Last Medication Dose Route Stop Time Status Admin Acetaminophen 650 MG Q6P PRN 08/06 1630 AC 08/08 PO 0708 Amlodipine Besylate 5 MG DAILY 08/06 1738 AC 08/08 PO 0847 Apixaban 5 MG BID 08/08 1236 UNVr PO Aspirin 81 MG DAILY 08/06 1739 08/08 PO 0844 Atorvastatin Calcium 80 MG 1700 08/06 1739 DC 08/06 PO 2011 Dexamethasone 2 MG DAILY 08/14 0900 AC PO 08/15 0901 Dexamethasone 2 MG Q12 08/12 2100 AC PO 08/14 0901 Dexamethasone 2 MG Q6 08/10 1800 AC PO 08/12 1201 Dexamethasone 4 MG Q6 08/09 1800 AC PO 08/10 1201 Dexamethasone 6 MG Q6 08/07 1800 DC 08/08 PO 08/08 1201 1217 Diclofenac Sodium 1 EDD 4 TIMES/DAY PRN 08/06 2315 AC TOP Duloxetine HCl 30 MG BID 08/06 2100 AC 08/08 PO 0844 Gabapentin 300 MG QPM 08/07 2100 08/07 PO 2145 Heparin Sodium 25,000 UNIT Q24H 08/06 1345 AC 08/07 (Porcine) IV 1319 Sodium Chloride 500 ML Insulin Aspart 0 TIDAC 08/07 0800 AC 08/08 SC 1218 Insulin Detemir 10 UNITS DAILY 08/07 2200 08/07 SC 2145 Metoprolol Tartrate 100 MG BID 08/06 2099 08/08 PO 0846 Morphine Sulfate 2 MG Q6-PRN PRN 08/06 1715 08/07 IV 0925 Nitroglycerin 0.4 MG 2000 08/07 2000 08/07 TOP 2145 Omeprazole 40 MG BID 08/07 2099 08/08 PO 0848 Omeprazole 40 MG DAILY AC 08/06 1742 DC 08/07 PO 0641 Oxycodone/ 1 TAB Q6P PRN 08/06 1630 08/07 Acetaminophen PO 1046 Patient Medication 1 ED ONE ONE 08/07 1430 PA Teaching ED 08/07 1431 Polyethylene Glycol 17 GM AT BEDTIME 08/06 2100 08/07 PO 2157 Tizanidine HCl 2 MG QPM PRN 08/06 1745 AC 08/06 PO 2010 Last 24 Hrs of Lab/Tu Results Last 24 Hrs of Labs/Mics: Laboratory Tests 08/08/17 0645: Anion Gap 12, Estimated GFR > 60, BUN/Creatinine Ratio 25.7 H, CBC w Diff NO MAN DIFF REQ, RBC 5.03, MCV 82.9, MCH 26.4 L, MCHC 31.9 L, RDW 13.1, MPV 9.0, Gran % 75.9 H, Lymphocytes % 20.3 L, Monocytes % 3.3, Eosinophils % 0.2, Basophils % 0.3, Absolute Granulocytes 5.5, Absolute Lymphocytes 1.5, Absolute Monocytes 0.2, Absolute Eosinophils 0, Absolute Basophils 0 08/08/17 0120: APTT 78 H 08/07/17 1240: APTT 63 H Assessment/Plan Assessment: 61 y/o AA lady w/ a PMH of Afib (not on anticoagulation), CAD w/ [place] 6-7yrs ago w / stent placement, HTN, DM and GERD who presented to the ED with a chief complaint of chest tightness which is started around 5 AM on the day of admission, right after when she woke up from sleep. She describes it as the same pain she had 12 years ago when she had AR and stent placed. In the ED her tropes were negative, EKG showed A. fib. Patient converted to normal sinus rhythm Her CHADvasc score is 3 which put her at 3.2% risk of stroke, she falls in the moderatehigh risk and she is a candidate to be started on oral anticoagulants on discharge. In addition the patient is complaining of chronic back pain which was getting worse over the last week, MRI: - No findings identified specific for lumbar spine metastases. No evidence of compression fracture. - Redemonstration of multilevel degenerative spondylotic changes with worsening severe spinal canal stenosis at L4-L5 and worsening mass effect on the exiting L4 nerve roots. - At L3-L4 there is new mass effect on the foraminal segment of the right L3 nerve root. - At L5-S1 there is worsening mass effect on the foraminal segment of the exiting left L5 nerve root and mass effect on the descending S1 nerve root appears stable. Problem list: paroxysmal A. fib not on anticoagulation chest pain, history of CAD S/P stent and cardiac cath History of hypertension Kqq-fmnwyas-wndpgbkob diabetes mellitus Accidentally discovered Bilateral lung nodule Left renal artery aneurysm, left renal stent Abnormal thyroid function Worsening chronic low back pain, MRI showed worsening mass-effect due to multiple disc prolapse at L3-S1 Plan: Continuous telemetry monitoring Discontinue IV heparin and start the leg was 5 mg twice a day. Discontinue IV heparin after first dose of this is given. Continue metoprolol 100 mg by mouth twice a day Echocardiogram revealed normal left ventricular ejection fraction 60, stage I diastolic failure, trace mitral regurgitation, mild tricuspid amputation, trace pulmonic regurgitation. 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 Will order thyroid ultrasound. Endocrine recommendation with plan for thyroid scan and uptake as an outpatient. Cardiology recommendation appreciated Endocrinology consult appreciated Neurosurgery consult appreciated Pulmonology consult appreciated Obtain nephrology consult if renal function worsening Continue home meds including metoprolol, statin, amlodipine the patient will likely benefit from a pharmacologic nuclear stress test, this can likely be performed as an outpatient at a later time. Patient is full code DVT prophylaxis with IV heparin drip Consistent carbohydrate diet Problem List: 1. Atrial fibrillation 2. Diabetes mellitus 3. Subclinical hyperthyroidism 4. Spinal stenosis of lumbar region Pain Ratin Pain Location: Lower back pain Pain Goal: Pain 4 or less Pain Plan: Decadron Morphine Tomorrow's Labs & Rationales: BEP
--- NOTE | 2017-08-08 09:19 | PN- Endocrinology ---
Assessment/Plan Endoscopy Assessment: Patient states that her back feels better on Decadron. She was started on high- dose Decadron yesterday by mouth for spinal stenosis. Patient is on insulin including 10 units of Levemir at night and also sliding scale NovoLog. The Decadron is being administered every 6 hours. The patient's thyroid function tests remain abnormal. Her TSH was 0.148 on 08/06. Repeat labs yesterday show a TSH of 0.107 with a total T3 of 1.82 and a free T4 of 2.38. Antithyroid peroxidase and antithyroglobulin antibodies are negative. The thyroid blood work was done before Decadron was started. The findings are consistent with subclinical hyperthyroidism. 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 The differential diagnosis would include autoimmune hyperthyroidism or even a thyroiditis. Plan: Suggest that the patient needs to have a ultrasound of the thyroid done to check for thyroid nodules. She will also need a nuclear medicine study with a thyroid scan and uptake. I would begin methimazole 2.5 mg daily which is a small dose to help control her overactive thyroid. If she has a thyroid scan and uptake this will need to be stopped 2 or 3 days before that study With regard to the patient's insulin I would increase her Levemir to 10 units twice a day while on high-dose Decadron and continue the present sliding scale NovoLog.. Subjective Subjective: Back feels improved Review of Systems Constitutional: Denies: chills, fever. Cardiovascular: Denies: chest pain. Respiratory: Denies: cough, short of breath. Gastrointestinal: Denies: nausea, vomiting. Skin: Reports: no symptoms. Objective Last 24 Hrs of Vital Signs/I&O Vital Signs Date Time Temp Pulse Resp B/P B/P Pulse O2 O2 Flow FiO2 Mean Ox Delivery Rate 08/08 0847 90 116/82 08/08 0846 90 116/82 08/08 0654 98.0 89 18 158/88 94 Room Air 08/07 2224 98.9 85 24 130/76 96 08/07 2146 76 104/76 08/07 1425 98.0 76 20 104/76 96 08/07 0951 138/86 08/07 0951 138/86 Intake & Output 08/08 1600 08/08 0800 08/08 0000 Intake Total 385 260 Output Total Balance 385 260 Intake, IV 135 60 Intake, Oral 250 200 Patient 187 lb Weight Vital Signs Date Time Temp Pulse Resp B/P B/P Pulse O2 O2 Flow FiO2 Mean Ox Delivery Rate 08/08 0847 90 116/82 08/08 0846 90 116/82 08/08 0654 98.0 89 18 158/88 94 Room Air 08/07 2224 98.9 85 24 130/76 96 08/07 2146 76 104/76 08/07 1425 98.0 76 20 104/76 96 08/07 0951 138/86 08/07 0951 138/86 Intake & Output 08/08 1600 08/08 0800 08/08 0000 Intake Total 385 260 Output Total Balance 385 260 Intake, IV 135 60 Intake, Oral 250 200 Patient 187 lb Weight Physical Exam General Appearance: alert, awake, comfortable Head: normal appearance Neck: normal inspection Respiratory: normal breath sounds Cardiovascular: regular rate/rhythm Abdomen: normal bowel sounds Extremities: normal inspection Current Medications: Current Medications Sig/Karmen Start time Last Medication Dose Route Stop Time Status Admin Acetaminophen 650 MG Q6P PRN 08/06 1630 AC 08/08 PO 0708 Amlodipine Besylate 5 MG DAILY 08/06 1738 AC 08/08 PO 0847 Aspirin 81 MG DAILY 08/06 1739 AC 08/08 PO 0844 Atorvastatin Calcium 80 MG 1700 08/06 1739 DC 08/06 PO 2011 Dexamethasone 2 MG DAILY 08/14 0900 AC PO 08/15 0901 Dexamethasone 2 MG Q12 08/12 2100 AC PO 08/14 0901 Dexamethasone 2 MG Q6 08/10 1800 AC PO 08/12 1201 Dexamethasone 4 MG Q6 08/09 1800 AC PO 08/10 1201 Dexamethasone 6 MG Q6 08/07 1800 AC 08/08 PO 08/08 1201 0621 Diclofenac Sodium 1 EDD 4 TIMES/DAY PRN 08/06 2315 AC TOP Duloxetine HCl 30 MG BID 08/06 2100 AC 08/08 PO 0844 Gabapentin 300 MG QPM 08/07 2100 AC 08/07 PO 2145 Heparin Sodium 25,000 UNIT Q24H 08/06 1345 AC 08/07 (Porcine) IV 1319 Sodium Chloride 500 ML Insulin Aspart 0 TIDAC 08/07 0800 AC 08/08 SC 0849 Insulin Detemir 10 UNITS DAILY 08/07 2200 AC 08/07 SC 2145 Metoprolol Tartrate 100 MG BID 08/06 2099 08/08 PO 0846 Morphine Sulfate 2 MG Q6-PRN PRN 08/06 1715 08/07 IV 0925 Nitroglycerin 0.4 MG 08/07 08/07 TOP 2145 Omeprazole 40 MG BID 08/07 2099 08/08 PO 0848 Omeprazole 40 MG DAILY 08/06 1742 DC 08/07 PO 0641 Oxycodone/ 1 TAB Q6P PRN 08/06 1630 08/07 Acetaminophen PO 1046 Patient Medication 1 ED ONE ONE 08/07 1430 DC Teaching ED 08/07 1431 Polyethylene Glycol 17 GM AT BEDTIME 08/06 2099 08/07 PO 2157 Tizanidine HCl 2 MG QPM PRN 08/06 174 08/06 PO 2010 Results Pertinent Lab/Tu Results: Laboratory Tests 08/08 08/08 08/07 0645 0120 1240 Chemistry Sodium (137 - 145 mmol/L) 139 Potassium (3.5 - 5.1 mmol/L) 4.5 Chloride (98 - 107 mmol/L) 101 Carbon Dioxide (22 - 30 mmol/L) 27 Anion Gap (5 - 16) 12 BUN (7 - 17 mg/dL) 18 H Creatinine (0.5 - 1.0 mg/dL) 0.7 Estimated GFR (>60 ml/min) > 60 BUN/Creatinine Ratio (7 - 25 %) 25.7 H Coagulation APTT (25 - 37 SEC) 78 H 63 H Hematology CBC w Diff NO MAN DIFF REQ WBC (4.8 - 10.8 /CUMM) 7.3 RBC (4.20 - 5.40 /CUMM) 5.03 Hgb (12.0 - 16.0 G/DL) 13.3 Hct (37 - 47 %) 41.7 MCV (81.0 - 99.0 FL) 82.9 MCH (27.0 - 31.0 PG) 26.4 L MCHC (33.0 - 37.0 G/DL) 31.9 L RDW (11.5 - 14.5 %) 13.1 Plt Count (130 - 400 /CUMM) 185 MPV (7.4 - 10.4 FL) 9.0 Gran % (42.2 - 75.2 %) 75.9 H Lymphocytes % (20.5 - 51.1 %) 20.3 L Monocytes % (1.7 - 9.3 %) 3.3 Eosinophils % (0 - 5 %) 0.2 Basophils % (0.0 - 2.0 %) 0.3 Absolute Granulocytes (1.4 - 6.5 /CUMM) 5.5 Absolute Lymphocytes (1.2 - 3.4 /CUMM) 1.5 Absolute Monocytes (0.10 - 0.60 /CUMM) 0.2 Absolute Eosinophils (0.0 - 0.7 /CUMM) 0 Absolute Basophils (0.0 - 0.2 /CUMM) 0 08/07 08/07 0655 0300 Chemistry Sodium (137 - 145 mmol/L) 141 Potassium (3.5 - 5.1 mmol/L) 4.0 Chloride (98 - 107 mmol/L) 103 Carbon Dioxide (22 - 30 mmol/L) 29 Anion Gap (5 - 16) 9 BUN (7 - 17 mg/dL) 18 H Creatinine (0.5 - 1.0 mg/dL) 0.8 Estimated GFR (>60 ml/min) > 60 BUN/Creatinine Ratio (7 - 25 %) 22.5 Total Bilirubin (0.2 - 1.3 mg/dL) 0.6 Direct Bilirubin (< 0.4 mg/dL) 0.2 AST (14 - 36 U/L) 40 H ALT (9 - 52 U/L) 49 Alkaline Phosphatase (<127 U/L) 108 Creatine Kinase (30 - 135 U/L) 361 H Total Protein (6.3 - 8.2 g/dL) 7.2 Albumin (3.5 - 5.0 g/dL) 3.9 TSH (0.270 - 4.200 uIU/mL) 0.107 L Free T4 (0.78 - 2.44 ng/dL) 2.38 Total T3 (0.97 - 1.69 ng/mL) 1.82 H Coagulation APTT (25 - 37 SEC) > 120 *H Hematology CBC w Diff NO MAN DIFF REQ WBC (4.8 - 10.8 /CUMM) 5.2 RBC (4.20 - 5.40 /CUMM) 4.89 Hgb (12.0 - 16.0 G/DL) 13.0 Hct (37 - 47 %) 40.6 MCV (81.0 - 99.0 FL) 83.0 MCH (27.0 - 31.0 PG) 26.6 L MCHC (33.0 - 37.0 G/DL) 32.0 L RDW (11.5 - 14.5 %) 13.7 Plt Count (130 - 400 /CUMM) 173 MPV (7.4 - 10.4 FL) 9.3 Gran % (42.2 - 75.2 %) 37.8 L Lymphocytes % (20.5 - 51.1 %) 46.3 Monocytes % (1.7 - 9.3 %) 9.3 Eosinophils % (0 - 5 %) 5.9 H Basophils % (0.0 - 2.0 %) 0.7 Absolute Granulocytes (1.4 - 6.5 /CUMM) 2.0 Absolute Lymphocytes (1.2 - 3.4 /CUMM) 2.4 Absolute Monocytes (0.10 - 0.60 /CUMM) 0.5 Absolute Eosinophils (0.0 - 0.7 /CUMM) 0.3 Absolute Basophils (0.0 - 0.2 /CUMM) 0 Immunology Thyroglobulin Antibody (< 61 U/mL) 29 Thyroid Peroxidase Ab (< 61 U/mL) 38 Urines Urine Color (YEL,AMB,STR) YEL Urine Clarity (CLEAR) CLEAR Urine pH (5.0 - 8.0) 6.0 Ur Specific [place] (1.001 - 1.035) 1.020 Urine Protein (NEG,<30 MG/DL) NEG Urine Ketones (NEG) NEG Urine Nitrite (NEG) NEG Urine Bilirubin (NEG) NEG Urine Urobilinogen (0.1 - 1.0 EU/dl) 0.2 Ur Leukocyte Esterase (NEG) NEG Ur Microscopic EXAM NOT REQUIRED Urine Hemoglobin (NEG) NEG Urine Glucose (N MG/DL) >=1000 H 08/06 08/06 08/06 08/06 2330 2024 1730 1710 Chemistry Troponin I (< 0.11 ng/ml) < 0.01 < 0.01 Cancelled Free T4 (0.78 - 2.44 ng/dL) 2.42 Total T3 (0.97 - 1.69 ng/mL) 1.80 H Coagulation APTT (25 - 37 SEC) 83 H
--- NOTE | 2017-08-08 10:02 | Cons- Pulmonary ---
General Information and HPI Consulting Request Date of Consult: 08/08/17 Requested By: Dr. Pickett Reason for Consult: lung nodules Source of Information: patient Exam Limitations: no limitations History of Present Illness: 61 year old woman. Hx of CAD, s/p stent placement over a decade ago, hx of PE in 2009 and hx of a.fib, was not on a/c. Presented with chest discomfort, tightness , sweating, light-headedness, nausea. She was found to be in a.fib. Atypical chest pain and the above associated symptoms have resolved. No travel hx, no sick contacts, no headaches, no rashes, no joint pains. 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 She has no personal hx of any cancers. She had a CTA performed in workup of above and found to have bilateral small ( largest 4 mm) nodules. 3mm RUL 2mm RML 4mm RLL scattered sub-2mm nodules in both lungs. Allergies/Medications Allergies: Coded Allergies: lisinopril (Severe, TONGUE SWELLING 12/09/15) Home Med List: Acetaminophen (Tylenol Arthritis) 650 MG TABLET.ER 1 TAB PO DAILY PRN PAIN ( Reported) Amlodipine Besylate 5 MG TABLET 1 TAB PO DAILY HEART (Reported) Aspirin (Children's Aspirin) 81 MG TAB.CHEW 1 TAB PO DAILY HEART HEALTH ( Reported) Atorvastatin Calcium (Lipitor) 80 MG TABLET 1 TAB PO DAILY CHOLESTEROL ( Reported) Benzonatate (Tessalon Perle) 100 MG CAPSULE 1 CAP PO TID PRN COUGH Canagliflozin (Invokana) 300 MG TABLET 1 TAB PO DAILY DIABETES (Reported) Cholecalciferol (Vitamin D3) 1,000 UNIT TABLET 1 TAB PO DAILY SUPPLEMENT ( Reported) Clotrimazole/Betamethasone Dip (Clotrimazole-Betamethasone Crm) 1 %-0.05 % CREAM..G. 1 EDD TOP BID UNKNOWN (Reported) apply to affected area(s) Cyanocobalamin (Vitamin B-12) (Vitamin B-12) 100 MCG TABLET 1 TAB PO DAILY VITAMIN SUPPORT (Reported) Duloxetine Hydrochloride (Cymbalta) 30 MG CAPSULE.DR 1 CAP PO BID NERVE PAIN (Reported) Ferrous Sulfate (Feosol) 325 MG (65 MG IRON) TABLET 1 TAB PO DAILY IRON, VITAMIN (Reported) Hydrocodone/Acetaminophen (Hydrocodon-Acetaminophen 5-325) 1 EACH TABLET 1 TAB PO PRN PAIN (Reported) Ibuprofen 600 MG TABLET 1 TAB PO BID PAIN (Reported) with food Lactobacillus Combination No.4 (Probiotic) 3 BILLION CELL CAPSULE 1 CAP PO DAILY GI (Reported) Linaclotide (Linzess) 145 MCG CAPSULE 1 CAP PO DAILY GI (Reported) Metoprolol Tartrate 100 MG TABLET 1 TAB PO BID HEART (Reported) Omeprazole 40 MG CAPSULE.DR 1 CAP PO BID GI (Reported) Ondansetron (Zofran Odt) 4 MG TAB.RAPDIS 1 TAB SL TID PRN NAUSEA/VOMITING ( Reported) Sumatriptan Succinate 100 MG TABLET 1 TAB PO DAILY PRN HEADACHE (Reported) may repeat in 2 hours; do not exceed 200 mg in 24 hours Tizanidine HCl 2 MG TABLET 1 TAB PO QPMP PRN PAIN (Reported) Tramadol HCl 50 MG TABLET 1 TAB PO TID PAIN (Reported) Current Medications: Current Medications Sig/Karmen Start time Last Medication Dose Route Stop Time Status Admin Acetaminophen 650 MG Q6P PRN 08/06 1630 AC 08/08 PO 0708 Amlodipine Besylate 5 MG DAILY 08/06 1738 AC 08/08 PO 0847 Aspirin 81 MG DAILY 08/06 1739 AC 08/08 PO 0844 Atorvastatin Calcium 80 MG 1700 08/06 1739 DC 08/06 PO 2011 Dexamethasone 2 MG DAILY 08/14 0900 AC PO 08/15 0901 Dexamethasone 2 MG Q12 08/12 2100 AC PO 08/14 0901 Dexamethasone 2 MG Q6 08/10 1800 AC PO 08/12 1201 Dexamethasone 4 MG Q6 08/09 1800 AC PO 08/10 1201 Dexamethasone 6 MG Q6 08/07 1800 AC 08/08 PO 08/08 1201 0621 Diclofenac Sodium 1 EDD 4 TIMES/DAY PRN 08/06 2315 AC TOP Duloxetine HCl 30 MG BID 08/06 2100 AC 08/08 PO 0844 Gabapentin 300 MG QPM 08/07 2100 AC 08/07 PO 2145 Heparin Sodium 25,000 UNIT Q24H 08/06 1345 AC 08/07 (Porcine) IV 1319 Sodium Chloride 500 ML Insulin Aspart 0 TIDAC 08/07 0800 AC 08/08 SC 0849 Insulin Detemir 10 UNITS DAILY 08/07 2200 AC 08/07 SC 2145 Metoprolol Tartrate 100 MG BID 08/06 2099 08/08 PO 0846 Morphine Sulfate 2 MG Q6-PRN PRN 08/06 1715 08/07 IV 0925 Nitroglycerin 0.4 MG 08/07 08/07 TOP 2145 Omeprazole 40 MG BID 08/07 2099 08/08 PO 0848 Omeprazole 40 MG DAILY 08/06 1742 DC 08/07 PO 0641 Oxycodone/ 1 TAB Q6P PRN 08/06 1630 08/07 Acetaminophen PO 1046 Patient Medication 1 ED ONE ONE 08/07 1430 DC Teaching ED 08/07 1431 Polyethylene Glycol 17 GM AT BEDTIME 08/06 2099 08/07 PO 2157 Tizanidine HCl 2 MG QPM PRN 08/06 1745 08/06 PO 2010 Review of Systems Comments 18 point review of systems was performed and reviewed. Please see pertinent positives and pertinent negatives in the HPI. Otherwise ROS is negative. Past History Travel History Traveled to [place] past 21 day No Medical History Blood Transfusion Hx: No Neurological: NONE EENT: NONE Cardiovascular: AFIB, CAD, hypertension, myocardial infarction, stent placement CABG Respiratory: NONE Gastrointestinal: GERD Hepatic: NONE Renal: NONE Musculoskeletal: chronic back pain, osteoarthritis, LEG SPASMS Psychiatric: NONE Endocrine: diabetes Blood Disorders: NONE Cancer(s): NONE ART INSTRUCTOR/Reproductive: UTERINE FIBROIDS Surgical History Surgical History: hysterectomy Family History Relations & Conditions If Any: FATHER FH: [place] (myocardial infarction) SISTER Relation not specified for: FH: breast cancer Psychosocial History Where Do You Live? Home Services at Home: None Smoking Status: Never Smoked Functional Ability ADLs Independent: dressing, eating, toileting, bathing. Ambulation: independent Exam & Diagnostic Data Last 24 Hrs of Vital Signs/I&O Vital Signs Date Time Temp Pulse Resp B/P B/P Pulse O2 O2 Flow FiO2 Mean Ox Delivery Rate 08/08 0847 90 116/82 08/08 0846 90 116/82 08/08 0654 98.0 89 18 158/88 94 Room Air 08/07 2224 98.9 85 24 130/76 96 08/07 2146 76 104/76 08/07 1425 98.0 76 20 104/76 96 Intake & Output 08/08 1600 08/08 0800 08/08 0000 Intake Total 385 260 Output Total Balance 385 260 Intake, IV 135 60 Intake, Oral 250 200 Patient 187 lb Weight Physical Exam Other Physical Findings: Gen - awake, without distress Head and neck - normocephalic, atraumatic Cardiovascular - S1, S2 Lungs - clear to auscultation bilaterally Abdomen - bowel sounds positive, soft, non-tender Extremities - without edema Skin - normal skin turgor, no rashes Last 48 Hrs of Labs/Tu: Laboratory Tests 08/08/17 0645: Anion Gap 12, Estimated GFR > 60, BUN/Creatinine Ratio 25.7 H, CBC w Diff NO MAN DIFF REQ, RBC 5.03, MCV 82.9, MCH 26.4 L, MCHC 31.9 L, RDW 13.1, MPV 9.0, Gran % 75.9 H, Lymphocytes % 20.3 L, Monocytes % 3.3, Eosinophils % 0.2, Basophils % 0.3, Absolute Granulocytes 5.5, Absolute Lymphocytes 1.5, Absolute Monocytes 0.2, Absolute Eosinophils 0, Absolute Basophils 0 08/08/17 0120: APTT 78 H 08/07/17 1240: APTT 63 H 08/07/17 0655: Anion Gap 9, Estimated GFR > 60, BUN/Creatinine Ratio 22.5, Total Bilirubin 0.6, Direct Bilirubin 0.2, AST 40 H, ALT 49, Alkaline Phosphatase 108, Creatine Kinase 361 H, Total Protein 7.2, Albumin 3.9, TSH 0.107 L, Free T4 2.38, Total T3 1.82 H, APTT > 120 *H, CBC w Diff NO MAN DIFF REQ, RBC 4.89, MCV 83.0, MCH 26.6 L, MCHC 32.0 L, RDW 13.7, MPV 9.3, Gran % 37.8 L, Lymphocytes % 46.3, Monocytes % 9.3, Eosinophils % 5.9 H, Basophils % 0.7, Absolute Granulocytes 2.0, Absolute Lymphocytes 2.4, Absolute Monocytes 0.5, Absolute Eosinophils 0.3, Absolute Basophils 0, Thyroglobulin Antibody 29, Thyroid Peroxidase Ab 38 08/07/17 0300: Urine Color YEL, Urine Clarity CLEAR, Urine pH 6.0, Ur Specific [place] 1.020, Urine Protein NEG, Urine Ketones NEG, Urine Nitrite NEG, Urine Bilirubin NEG, Urine Urobilinogen 0.2, Ur Leukocyte Esterase NEG, Ur Microscopic EXAM NOT REQUIRED, Urine Hemoglobin NEG, Urine Glucose >=1000 H 08/06/17 2330: Troponin I < 0.01 08/06/17 2024: APTT 83 H 08/06/17 1730: Troponin I < 0.01, Free T4 2.42, Total T3 1.80 H 08/06/17 1710: Troponin I Cancelled Assessment/Plan Impression/Plan: Impression 61F with a.fib and remote PE, incidental lung nodules found on CTA CTA performed in workup of above and found to have bilateral small (largest 4 mm ) nodules. 3mm RUL 2mm RML 4mm RLL scattered sub-2mm nodules in both lungs. Plan -based on Fleischner criteria the patient is low risk (never smoker, no hx of cancer) -based on low risk criteria no further follow up is recommended -advised patient that if she ever has chest imaging in the future to inform her primary care providers Thank you for this consultation Consult Acknowledgment - Thank you for your consult request.
--- NOTE | 2017-08-08 10:07 | ECHOCARDIOGRAM REPORT ---
ATIYA PATTON Age: 61 : 1955 Gender: F Exam Date: 08/07/2017 09:56 Exam Location: [address] Ht (in): 59 Wt (lb): 183 BSA: 1.90 BP: 134 / 80 Ordering Physician: Samantha Arizmendi MD Referring Physician: Samantha Arizmendi MD Technologist: Howard Beal [facility] Room Number: 185-2 Indications: AFIB/FLUTTER Rhythm: Sinus Technical Quality: Technically difficult study FINDINGS Left Ventricle Normal size left ventricle. Normal left ventricular wall thickness. Normal left ventricular ejection fraction visually estimated at > 60%. Abnormal relaxation filling pattern of the left ventricle for age (stage 1 diastolic dysfunction). No obvious regional wall motion abnormalities. Right Ventricle Normal right ventricular size and function. Right Atrium Normal right atrial size. Left Atrium Normal left atrial size. Mitral Valve Mitral valve thickened. Mitral annular calcification. Trace mitral regurgitation. Aortic Valve Diffuse thickening (sclerosis) of the aortic valve cusps without reduced excursion. No aortic stenosis. No aortic regurgitation. Tricuspid Valve Tricuspid valve not well visualized, grossly normal. Mild tricuspid regurgitation. No evidence of pulmonary hypertension. Pulmonic Valve Pulmonic valve not well visualized, grossly normal. Trace pulmonic regurgitation. Pericardium No pericardial effusion. Great Vessels Normal size aortic root. CONCLUSIONS Normal left ventricular ejection fraction visually estimated at > 60%. Abnormal relaxation filling pattern of the left ventricle for age (stage 1 diastolic dysfunction). Trace mitral regurgitation. Mild tricuspid regurgitation. Trace pulmonic regurgitation. Brent Millard M.D. (Electronically Signed) Final Date: 08 August 2017 10:06 MEASUREMENTS (Male / Female) Normal Values 2D ECHO LV Diastolic Diameter PLAX 4.0 cm 4.2 - 5.9 / 3.9 - 5.3 cm LV Systolic Diameter PLAX 2.5 cm 2.1 - 4.0 cm LV Fractional Shortening PLAX 37.5 % 25 - 46 % LV Ejection Fraction 2D Teich 68.1 % IVS Diastolic Thickness 1.1 cm LVPW Diastolic Thickness 1.1 cm LV Relative Wall Thickness 0.6 RV Internal Dim ED PLAX 3.1 cm 1.9 - 3.8 cm LVOT Diameter 1.8 cm Aortic Root Diameter 2.5 cm LA Systolic Diameter LX 3.7 cm 3.0 - 4.0 / 2.7 - 3.8 cm Ascending Aorta Diameter 3.0 cm DOPPLER AV Peak Velocity 159.0 cm/s AV Peak Gradient 10.1 mmHg AV Mean Velocity 106.0 cm/s AV Mean Gradient 5.0 mmHg AV Velocity Time Integral 29.8 cm LVOT Peak Velocity 128.0 cm/s LVOT Peak Gradient 6.6 mmHg LVOT Mean Velocity 86.9 cm/s LVOT Mean Gradient 4.0 mmHg LVOT Velocity Time Integral 27.6 cm LVOT Stroke Volume 70.2 cm AV Area Cont Eq vti 2.4 cm AV Area Cont Eq pk 2.0 cm MV Peak Velocity 103.0 cm/s MV Peak Gradient 4.2 mmHg MV Mean Velocity 56.8 cm/s MV Mean Gradient 2.0 mmHg Mitral E Point Velocity 61.7 cm/s Mitral A Point Velocity 113.0 cm/s Mitral E to A Ratio 0.5 MV PHT Velocity 74.7 cm/s MV Deceleration [place] 198.0 cm/s MV Pressure Half Time 113.2 ms MV Area PHT 1.9 cm MV Deceleration Time 521.0 ms TR Peak Velocity 296.0 cm/s TR Peak Gradient 35.0 mmHg Right Atrial Pressure 5.0 mmHg Pulmonary Artery Systolic Pressu 40.0 mmHg Right Ventricular Systolic Press 40.0 mmHg PV Peak Velocity 131.0 cm/s PV Peak Gradient 6.9 mmHg PV Mean Velocity 82.6 cm/s PV Mean Gradient 3.0 mmHg PV Velocity Time Integral 19.6 cm
--- NOTE | 2017-08-08 12:09 | PN- Cardiology ---
Subjective Subjective: The patient remains in sinus rhythm. No chest pain. No shortness of breath. No palpitations. No diaphoresis Objective Vital Signs and I&Os Vital Signs Date Time Temp Pulse Resp B/P B/P Pulse O2 O2 Flow FiO2 Mean Ox Delivery Rate 08/08 0847 90 116/82 08/08 0846 90 116/82 08/08 0654 98.0 89 18 158/88 94 Room Air 08/07 2224 98.9 85 24 130/76 96 08/07 2146 76 104/76 08/07 1425 98.0 76 20 104/76 96 Intake & Output 08/08 1600 08/08 0800 08/08 0000 08/07 1600 08/07 0800 08/07 0000 Intake Total 385 260 393.6 220 104 Output Total Balance 385 260 393.6 220 104 Intake, IV 135 60 153.6 104 Intake, Oral 250 200 240 220 Number 0 Bowel Movements Patient 187 lb 186 lb Weight Weight Bed scale Measurement Method Physical Exam: General Appearance: well developed/nourished, alert, awake, oriented Head: normal HEENT: Normal Neck: supple, JVP normal, carotid upstrokes normal bilaterally, no masses or thyromegaly Respiratory: chest non-tender, clear to auscultation and percussion bilaterally Cardiovascular: regular rate/rhythm, normal S1, S2, 1/6 systolic murmur Abdomen: normal bowel sounds, soft, non-tender Extremities: normal inspection, no edema Vascular: Pulses are 2+ and equal bilaterally Neurologic: Grossly normal/nonfocal Current Medications: Current Medications Sig/Karmen Start time Last Medication Dose Route Stop Time Status Admin Acetaminophen 650 MG Q6P PRN 08/06 1630 AC 08/08 PO 0708 Amlodipine Besylate 5 MG DAILY 08/06 1738 AC 08/08 PO 0847 Aspirin 81 MG DAILY 08/06 1739 AC 08/08 PO 0844 Atorvastatin Calcium 80 MG 1700 08/06 1739 DC 08/06 PO 2011 Dexamethasone 2 MG DAILY 08/14 0900 AC PO 08/15 0901 Dexamethasone 2 MG Q12 08/12 2100 AC PO 08/14 0901 Dexamethasone 2 MG Q6 08/10 1800 AC PO 08/12 1201 Dexamethasone 4 MG Q6 08/09 1800 AC PO 08/10 1201 Dexamethasone 6 MG Q6 08/07 1800 DC 08/08 PO 08/08 1201 0621 Diclofenac Sodium 1 EDD 4 TIMES/DAY PRN 08/06 2315 TOP Duloxetine HCl 30 MG BID 08/06 2099 08/08 PO 0844 Gabapentin 300 MG QPM 08/07 2099 08/07 PO 2145 Heparin Sodium 25,000 UNIT Q24H 08/06 1345 08/07 (Porcine) IV 1319 Sodium Chloride 500 ML Insulin Aspart 0 TIDAC 08/07 0800 AC 08/08 SC 0849 Insulin Detemir 10 UNITS DAILY 08/07 220 08/07 SC 2145 Metoprolol Tartrate 100 MG BID 08/06 2099 08/08 PO 0846 Morphine Sulfate 2 MG Q6-PRN PRN 08/06 1715 08/07 IV 0925 Nitroglycerin 0.4 MG 08/07 08/07 TOP 2145 Omeprazole 40 MG BID 08/07 2099 08/08 PO 0848 Omeprazole 40 MG DAILY 08/06 1742 DC 08/07 PO 0641 Oxycodone/ 1 TAB Q6P PRN 08/06 1630 08/07 Acetaminophen PO 1046 Patient Medication 1 ED ONE ONE 08/07 1430 DE Teaching ED 08/07 1431 Polyethylene Glycol 17 GM AT BEDTIME 08/06 2099 08/07 PO 2157 Tizanidine HCl 2 MG QPM PRN 08/06 174 08/06 PO 2010 Results Last 48 Hrs of Labs/Mics: Laboratory Tests 08/08/17 0645: Anion Gap 12, Estimated GFR > 60, BUN/Creatinine Ratio 25.7 H, CBC w Diff NO MAN DIFF REQ, RBC 5.03, MCV 82.9, MCH 26.4 L, MCHC 31.9 L, RDW 13.1, MPV 9.0, Gran % 75.9 H, Lymphocytes % 20.3 L, Monocytes % 3.3, Eosinophils % 0.2, Basophils % 0.3, Absolute Granulocytes 5.5, Absolute Lymphocytes 1.5, Absolute Monocytes 0.2, Absolute Eosinophils 0, Absolute Basophils 0 08/08/17 0120: APTT 78 H 08/07/17 1240: APTT 63 H 08/07/17 0655: Anion Gap 9, Estimated GFR > 60, BUN/Creatinine Ratio 22.5, Total Bilirubin 0.6, Direct Bilirubin 0.2, AST 40 H, ALT 49, Alkaline Phosphatase 108, Creatine Kinase 361 H, Total Protein 7.2, Albumin 3.9, TSH 0.107 L, Free T4 2.38, Total T3 1.82 H, APTT > 120 *H, CBC w Diff NO MAN DIFF REQ, RBC 4.89, MCV 83.0, MCH 26.6 L, MCHC 32.0 L, RDW 13.7, MPV 9.3, Gran % 37.8 L, Lymphocytes % 46.3, Monocytes % 9.3, Eosinophils % 5.9 H, Basophils % 0.7, Absolute Granulocytes 2.0, Absolute Lymphocytes 2.4, Absolute Monocytes 0.5, Absolute Eosinophils 0.3, Absolute Basophils 0, Thyroglobulin Antibody 29, Thyroid Peroxidase Ab 38 08/07/17 0300: Urine Color YEL, Urine Clarity CLEAR, Urine pH 6.0, Ur Specific [place] 1.020, Urine Protein NEG, Urine Ketones NEG, Urine Nitrite NEG, Urine Bilirubin NEG, Urine Urobilinogen 0.2, Ur Leukocyte Esterase NEG, Ur Microscopic EXAM NOT REQUIRED, Urine Hemoglobin NEG, Urine Glucose >=1000 H 08/06/17 2330: Troponin I < 0.01 08/06/17 2024: APTT 83 H 08/06/17 1730: Troponin I < 0.01, Free T4 2.42, Total T3 1.80 H 08/06/17 1710: Troponin I Cancelled Assessment/Plan Assessment/Plan Assessment: 1. Paroxysmal atrial fibrillalation with rapid ventricular rate-now in sinus rhythm 2. History of coronary artery disease; status post prior stent 3. Chest discomfort 4. Low TSH with elevated T3-in view of the patient's paroxysmal atrial fibrillation, consider baseline endocrinology input. 5. Prominent muscle cramping Plan: * Start Eliquis 5 mg p.o. twice daily * Discontinue IV heparin when first dose of Eliquis is given * Continue current cardiac medications. * Follow-up in the office 1 week after * Possible nuclear stress test as an outpatient Continue telemetry? Yes
[2017-08-08 14:39] VITALS: BP 136/69
--- NOTE | 2017-08-08 16:59 | ULTRASOUND REPORT ---
EXAMINATION: US THYROID CLINICAL INFORMATION: Subclinical hyperthyroidism. Question toxic nodular goiter. COMPARISON: Chest CTA 08/06/2017 TECHNIQUE: Linear transducer calixto-scale and color Doppler examination with attention to the region of the thyroid. FINDINGS: SIZE: Measurements of the thyroid lobes and nodules are given in sagittal, anteroposterior and transverse dimensions respectively. The right thyroid gland is slightly enlarged. Right Thyroid Lobe: 5.4 x 2 x 2.1 cm, volume 11.9 mL. Left Thyroid Lobe: 4.1 x 2 x 1.9 cm, volume 8.2 mL. Isthmus: 0.5 cm in maximum AP dimension. PARENCHYMA: The gland echotexture is heterogeneous. Thyroid vascularity is normal. RIGHT THYROID LOBE: No nodules. ISTHMUS: No nodules. LEFT THYROID LOBE: There is question of a solitary hyperechoic nodule exophytic to the inferior left lobe. This measures 7 x 4 x 7 mm. This has smooth margin and no vascular flow. No corresponding finding is seen on recent chest CTA 08/06/2017. NODES: There are small bilateral cervical lymph nodes adjacent to the thyroid gland. These are normal in size and demonstrate normal flow and ultrasound morphology.. IMPRESSION: Heterogeneous thyroid gland. Slightly enlarged right lobe. Question solitary hyperechoic nodule exophytic to the inferior left lobe.
[2017-08-08 22:14] VITALS: BP 130/72
[2017-08-09 06:51] VITALS: BP 126/74
--- NOTE | 2017-08-09 08:47 | PN- Diabetes ---
Assessment/Plan Diabetes Assessment: Patient feels improved. Her Decadron is now a dosage of 4 mg every 6 hours. The patient is on an insulin regimen consisting of Levemir 10 units twice a day as well as sliding scale NovoLog before meals. Her fingerstick blood sugars yesterday were 208 before breakfast, 263 before lunch, 195 before dinner, 259 at bedtime. Her fingerstick blood sugar this morning before breakfast is 198. With regard to her thyroid the patient underwent an ultrasound yesterday. There is a solitary hyperechoic nodule below the left lobe. The rest of the gland does not have nodules but there is heterogeneous echotexture. The patient has been started on a small dose of methimazole 2.5 mg daily. She will need a thyroid scan and uptake but unfortunately she had a CT angiogram on 08/06/2017. Therefore the patient received IV contrast and we will need to wait 4-6 weeks in order to allow that iodine load to get out of her system before we can do a meaningful thyroid scan and uptake. Plan: Suggest continue the present insulin. In addition continue methimazole 2.5 mg daily. Tomorrow we should repeat her CBC, liver function panel, as well as a free T4, total T3, and TSH. Subjective Subjective: Feels improved Review of Systems Constitutional: Denies: chills, fever. Cardiovascular: Denies: chest pain. Respiratory: Denies: cough, short of breath. Gastrointestinal: Denies: nausea, vomiting. Skin: Reports: no symptoms. Objective Last 24 Hrs of Vital Signs/I&O Vital Signs Date Time Temp Pulse Resp B/P B/P Pulse O2 O2 Flow FiO2 Mean Ox Delivery Rate 08/09 0551 98.2 99 19 126/74 97 Room Air 08/08 2213 98.1 98 19 130/72 95 08/08 2137 94 130/72 08/08 1439 98.1 95 16 136/69 95 Room Air 08/08 0847 90 116/82 Intake & Output 08/09 1600 08/09 0800 08/09 0000 Intake Total 220 440 Output Total Balance 220 440 Intake, Oral 220 440 Patient 128 lb Weight Vital Signs Date Time Temp Pulse Resp B/P B/P Pulse O2 O2 Flow FiO2 Mean Ox Delivery Rate 08/09 0551 98.2 99 19 126/74 97 Room Air 08/084 98.1 98 19 130/72 95 08/08 2137 94 130/72 08/08 1439 98.1 95 16 136/69 95 Room Air 08/08 0847 90 116/82 08/08 0846 90 116/82 Intake & Output 08/09 1600 08/09 0800 08/09 0000 Intake Total 220 440 Output Total Balance 220 440 Intake, Oral 220 440 Patient 128 lb Weight Physical Exam General Appearance: alert, awake Head: normal appearance Neck: normal inspection Respiratory: normal breath sounds Cardiovascular: regular rate/rhythm Abdomen: normal bowel sounds Extremities: normal inspection Current Medications: Current Medications Sig/Karmen Start time Last Medication Dose Route Stop Time Status Admin Acetaminophen 650 MG .STK-MED ONE 08/08 2121 DC PO 08/08 2122 Acetaminophen 650 MG Q6P PRN 08/06 1630 08/08 PO 213 Amlodipine Besylate 5 MG DAILY 08/06 1738 08/08 PO 0847 Apixaban 5 MG BID 08/08 1236 AC 08/08 PO 2137 Aspirin 81 MG DAILY 08/06 1739 08/08 PO 0844 Dexamethasone 2 MG DAILY 08/14 0900 AC PO 08/15 0901 Dexamethasone 2 MG Q12 08/12 2100 AC PO 08/14 0901 Dexamethasone 2 MG Q6 08/10 1800 AC PO 08/12 1201 Dexamethasone 4 MG Q6 08/09 1800 PO 08/10 1201 Dexamethasone 6 MG Q6 08/07 1800 DC 08/08 PO 08/08 1201 1217 Diclofenac Sodium 1 EDD 4 TIMES/DAY PRN 08/06 2315 TOP Duloxetine HCl 30 MG BID 08/06 2100 AC 08/08 PO 213 Gabapentin 300 MG QPM 08/07 2100 AC 08/08 PO 2136 Heparin Sodium 25,000 UNIT Q24H 08/06 1345 DC 08/07 (Porcine) IV 1319 Sodium Chloride 500 ML Insulin Aspart 0 TIDAC 08/07 0800 AC 08/08 SC 1721 Insulin Detemir 10 UNITS BID 08/08 2100 08/08 SC 2138 Insulin Detemir 10 UNITS DAILY 08/07 2200 DC 08/07 SC 214 Methimazole 2.5 MG DAILY 08/08 1247 08/08 PO 1424 Metoprolol Tartrate 100 MG BID 08/06 2100 AC 08/08 PO 213 Morphine Sulfate 2 MG Q6-PRN PRN 08/06 1715 08/07 IV 0925 Nitroglycerin 0.4 MG 08/07 TOP 2139 Omeprazole 40 MG BID 08/07 PO 2134 Oxycodone/ 1 TAB Q6P PRN 08/06 1630 AC 08/09 Acetaminophen PO 51 Polyethylene Glycol 17 GM AT BEDTIME 08/06 PO 2156 Tizanidine HCl 2 MG QPM PRN 08/06 1744 AC 08/06 PO 2010 Findings Pertinent Lab/Tu Results: Laboratory Tests 08/09 08/08 08/08 0715 1320 0645 Chemistry Sodium (137 - 145 mmol/L) 139 Potassium (3.5 - 5.1 mmol/L) 4.5 Chloride (98 - 107 mmol/L) 101 Carbon Dioxide (22 - 30 mmol/L) 27 Anion Gap (5 - 16) 12 BUN (7 - 17 mg/dL) 18 H Creatinine (0.5 - 1.0 mg/dL) 0.7 Estimated GFR (>60 ml/min) > 60 BUN/Creatinine Ratio (7 - 25 %) 25.7 H TSH &T3 &Free T4 Intrp Pending Coagulation APTT Cancelled Hematology CBC w Diff NO MAN DIFF REQ WBC (4.8 - 10.8 /CUMM) 7.3 RBC (4.20 - 5.40 /CUMM) 5.03 Hgb (12.0 - 16.0 G/DL) 13.3 Hct (37 - 47 %) 41.7 MCV (81.0 - 99.0 FL) 82.9 MCH (27.0 - 31.0 PG) 26.4 L MCHC (33.0 - 37.0 G/DL) 31.9 L RDW (11.5 - 14.5 %) 13.1 Plt Count (130 - 400 /CUMM) 185 MPV (7.4 - 10.4 FL) 9.0 Gran % (42.2 - 75.2 %) 75.9 H Lymphocytes % (20.5 - 51.1 %) 20.3 L Monocytes % (1.7 - 9.3 %) 3.3 Eosinophils % (0 - 5 %) 0.2 Basophils % (0.0 - 2.0 %) 0.3 Absolute Granulocytes (1.4 - 6.5 /CUMM) 5.5 Absolute Lymphocytes (1.2 - 3.4 /CUMM) 1.5 Absolute Monocytes (0.10 - 0.60 /CUMM) 0.2 Absolute Eosinophils (0.0 - 0.7 /CUMM) 0 Absolute Basophils (0.0 - 0.2 /CUMM) 0 08/08 08/07 0120 1240 Coagulation APTT (25 - 37 SEC) 78 H 63 H
[2017-08-09 08:49] VITALS: BP 126/74
--- NOTE | 2017-08-09 12:15 | PN- Student ---
Subjective Subjective: Patient is 61 year old female with a PMHx of a fib, HTN, CAD, DE s/p stents, fibromuscular dysplasia s/p RA stent, hysterectomy/oopherectomy, chronic back pain and lifetime non-smoker. She is here for f/u of 1010 chest pain that has since resolved. She is sitting comfortably in the chair and reports that the dexamethasone has relieved her back pain and she is pain free for the first time in years. She denies any chest pain, palpitations, dizziness, and SOB. Objective Objective: Vital Signs Date Time Temp Pulse Resp B/P B/P Pulse O2 O2 Flow FiO2 Mean Ox Delivery Rate 08/09 0849 99 126/74 08/09 0849 99 126/74 08/09 0651 98.2 99 19 126/74 97 Room Air 08/08 2214 98.1 98 19 130/72 95 08/08 2137 94 130/72 08/08 1439 98.1 95 16 136/69 95 Room Air Physical Exam: General Appearance Alert, Cooperative, in no acute distress HEENT Normocephalic, atraumatic, moist mucous membranes Neck No palpable nodules Cardiovascular Normal S1/S2, no MRG appreciated Lungs Clear to auscultation bilaterally, no wheezes, crackles or rhonchi appreciated Abdomen Normal bowel sounds, soft, non-tender Neurological Normal speech Extremities Diaphoretic, no clubbing, cyanosis, or edema Laboratory Tests 08/09 08/08 0715 1320 Chemistry Free T4 (0.78 - 2.44 ng/dL) 1.70 Total T3 (0.97 - 1.69 ng/mL) 1.74 H TSH &T3 &Free T4 Intrp (0.270 - 4.20 uIU/mL) 0.045 L Coagulation APTT Cancelled 08/08 08/08 0645 0120 Chemistry Sodium (137 - 145 mmol/L) 139 Potassium (3.5 - 5.1 mmol/L) 4.5 Chloride (98 - 107 mmol/L) 101 Carbon Dioxide (22 - 30 mmol/L) 27 Anion Gap (5 - 16) 12 BUN (7 - 17 mg/dL) 18 H Creatinine (0.5 - 1.0 mg/dL) 0.7 Estimated GFR (>60 ml/min) > 60 BUN/Creatinine Ratio (7 - 25 %) 25.7 H Coagulation APTT (25 - 37 SEC) 78 H Hematology CBC w Diff NO MAN DIFF REQ WBC (4.8 - 10.8 /CUMM) 7.3 RBC (4.20 - 5.40 /CUMM) 5.03 Hgb (12.0 - 16.0 G/DL) 13.3 Hct (37 - 47 %) 41.7 MCV (81.0 - 99.0 FL) 82.9 MCH (27.0 - 31.0 PG) 26.4 L MCHC (33.0 - 37.0 G/DL) 31.9 L RDW (11.5 - 14.5 %) 13.1 Plt Count (130 - 400 /CUMM) 185 MPV (7.4 - 10.4 FL) 9.0 Gran % (42.2 - 75.2 %) 75.9 H Lymphocytes % (20.5 - 51.1 %) 20.3 L Monocytes % (1.7 - 9.3 %) 3.3 Eosinophils % (0 - 5 %) 0.2 Basophils % (0.0 - 2.0 %) 0.3 Absolute Granulocytes (1.4 - 6.5 /CUMM) 5.5 Absolute Lymphocytes (1.2 - 3.4 /CUMM) 1.5 Absolute Monocytes (0.10 - 0.60 /CUMM) 0.2 Absolute Eosinophils (0.0 - 0.7 /CUMM) 0 Absolute Basophils (0.0 - 0.2 /CUMM) 0 Laboratory Tests 08/09 08/08 0715 1320 Chemistry Free T4 (0.78 - 2.44 ng/dL) 1.70 Total T3 (0.97 - 1.69 ng/mL) 1.74 H TSH &T3 &Free T4 Intrp (0.270 - 4.20 uIU/mL) 0.045 L Coagulation APTT Cancelled 08/08 08/08 08/07 0645 0120 1240 Chemistry Sodium (137 - 145 mmol/L) 139 Potassium (3.5 - 5.1 mmol/L) 4.5 Chloride (98 - 107 mmol/L) 101 Carbon Dioxide (22 - 30 mmol/L) 27 Anion Gap (5 - 16) 12 BUN (7 - 17 mg/dL) 18 H Creatinine (0.5 - 1.0 mg/dL) 0.7 Estimated GFR (>60 ml/min) > 60 BUN/Creatinine Ratio (7 - 25 %) 25.7 H Coagulation APTT (25 - 37 SEC) 78 H 63 H Hematology CBC w Diff NO MAN DIFF REQ WBC (4.8 - 10.8 /CUMM) 7.3 RBC (4.20 - 5.40 /CUMM) 5.03 Hgb (12.0 - 16.0 G/DL) 13.3 Hct (37 - 47 %) 41.7 MCV (81.0 - 99.0 FL) 82.9 MCH (27.0 - 31.0 PG) 26.4 L MCHC (33.0 - 37.0 G/DL) 31.9 L RDW (11.5 - 14.5 %) 13.1 Plt Count (130 - 400 /CUMM) 185 MPV (7.4 - 10.4 FL) 9.0 Gran % (42.2 - 75.2 %) 75.9 H Lymphocytes % (20.5 - 51.1 %) 20.3 L Monocytes % (1.7 - 9.3 %) 3.3 Eosinophils % (0 - 5 %) 0.2 Basophils % (0.0 - 2.0 %) 0.3 Absolute Granulocytes (1.4 - 6.5 /CUMM) 5.5 Absolute Lymphocytes (1.2 - 3.4 /CUMM) 1.5 Absolute Monocytes (0.10 - 0.60 /CUMM) 0.2 Absolute Eosinophils (0.0 - 0.7 /CUMM) 0 Absolute Basophils (0.0 - 0.2 /CUMM) 0 08/07 08/07 0655 0300 Chemistry Sodium (137 - 145 mmol/L) 141 Potassium (3.5 - 5.1 mmol/L) 4.0 Chloride (98 - 107 mmol/L) 103 Carbon Dioxide (22 - 30 mmol/L) 29 Anion Gap (5 - 16) 9 BUN (7 - 17 mg/dL) 18 H Creatinine (0.5 - 1.0 mg/dL) 0.8 Estimated GFR (>60 ml/min) > 60 BUN/Creatinine Ratio (7 - 25 %) 22.5 Total Bilirubin (0.2 - 1.3 mg/dL) 0.6 Direct Bilirubin (< 0.4 mg/dL) 0.2 AST (14 - 36 U/L) 40 H ALT (9 - 52 U/L) 49 Alkaline Phosphatase (<127 U/L) 108 Creatine Kinase (30 - 135 U/L) 361 H Total Protein (6.3 - 8.2 g/dL) 7.2 Albumin (3.5 - 5.0 g/dL) 3.9 TSH (0.270 - 4.200 uIU/mL) 0.107 L Free T4 (0.78 - 2.44 ng/dL) 2.38 Total T3 (0.97 - 1.69 ng/mL) 1.82 H Coagulation APTT (25 - 37 SEC) > 120 *H Hematology CBC w Diff NO MAN DIFF REQ WBC (4.8 - 10.8 /CUMM) 5.2 RBC (4.20 - 5.40 /CUMM) 4.89 Hgb (12.0 - 16.0 G/DL) 13.0 Hct (37 - 47 %) 40.6 MCV (81.0 - 99.0 FL) 83.0 MCH (27.0 - 31.0 PG) 26.6 L MCHC (33.0 - 37.0 G/DL) 32.0 L RDW (11.5 - 14.5 %) 13.7 Plt Count (130 - 400 /CUMM) 173 MPV (7.4 - 10.4 FL) 9.3 Gran % (42.2 - 75.2 %) 37.8 L Lymphocytes % (20.5 - 51.1 %) 46.3 Monocytes % (1.7 - 9.3 %) 9.3 Eosinophils % (0 - 5 %) 5.9 H Basophils % (0.0 - 2.0 %) 0.7 Absolute Granulocytes (1.4 - 6.5 /CUMM) 2.0 Absolute Lymphocytes (1.2 - 3.4 /CUMM) 2.4 Absolute Monocytes (0.10 - 0.60 /CUMM) 0.5 Absolute Eosinophils (0.0 - 0.7 /CUMM) 0.3 Absolute Basophils (0.0 - 0.2 /CUMM) 0 Immunology Thyroglobulin Antibody (< 61 U/mL) 29 Thyroid Peroxidase Ab (< 61 U/mL) 38 Urines Urine Color (YEL,AMB,STR) YEL Urine Clarity (CLEAR) CLEAR Urine pH (5.0 - 8.0) 6.0 Ur Specific [place] (1.001 - 1.035) 1.020 Urine Protein (NEG,<30 MG/DL) NEG Urine Ketones (NEG) NEG Urine Nitrite (NEG) NEG Urine Bilirubin (NEG) NEG Urine Urobilinogen (0.1 - 1.0 EU/dl) 0.2 Ur Leukocyte Esterase (NEG) NEG Ur Microscopic EXAM NOT REQUIRED Urine Hemoglobin (NEG) NEG Urine Glucose (N MG/DL) >=1000 H 08/06 08/06 08/06 08/06 2330 2024 1730 1710 Chemistry Troponin I (< 0.11 ng/ml) < 0.01 < 0.01 Cancelled Free T4 (0.78 - 2.44 ng/dL) 2.42 Total T3 (0.97 - 1.69 ng/mL) 1.80 H Coagulation APTT (25 - 37 SEC) 83 H Current Medications Sig/Karmen Start time Last Medication Dose Route Stop Time Status Admin Acetaminophen 650 MG .STK-MED ONE 08/08 2121 DC PO 08/08 2122 Acetaminophen 650 MG Q6P PRN 08/06 1630 AC 08/08 PO 2135 Amlodipine Besylate 5 MG DAILY 08/06 1738 AC 08/09 PO 0849 Apixaban 5 MG BID 08/08 1236 AC 08/09 PO 0849 Aspirin 81 MG DAILY 08/06 1739 AC 08/09 PO 0849 Dexamethasone 2 MG DAILY 08/14 0900 AC PO 08/15 0901 Dexamethasone 2 MG Q12 08/12 2100 AC PO 08/14 0901 Dexamethasone 2 MG Q6 08/10 1800 AC PO 08/12 1201 Dexamethasone 4 MG Q6 08/09 1800 AC PO 08/10 1201 Diclofenac Sodium 1 EDD 4 TIMES/DAY PRN 08/06 2315 AC TOP Duloxetine HCl 30 MG BID 08/06 2100 AC 08/09 PO 0849 Gabapentin 300 MG QPM 08/07 2100 AC 08/08 PO 2136 Heparin Sodium 25,000 UNIT Q24H 08/06 1345 DC 08/07 (Porcine) IV 1319 Sodium Chloride 500 ML Insulin Aspart 0 TIDAC 08/07 0800 AC 08/09 SC 1203 Insulin Detemir 10 UNITS BID 08/08 2100 AC 08/09 SC 0845 Insulin Detemir 10 UNITS DAILY 08/07 2200 DC 08/07 SC 2145 Methimazole 2.5 MG DAILY 08/08 1247 AC 08/09 PO 0850 Metoprolol Tartrate 100 MG BID 08/06 2099 08/09 PO 0849 Morphine Sulfate 2 MG Q6-PRN PRN 08/06 1715 08/07 IV 0925 Nitroglycerin 0.4 MG 08/07 [facility] 2139 Omeprazole 40 MG BID 08/07 PO 0849 Oxycodone/ 1 TAB Q6P PRN 08/06 163 AC 08/09 Acetaminophen PO 0651 Polyethylene Glycol 17 GM AT BEDTIME 08/06 2099 08/07 PO 215 Tizanidine HCl 2 MG QPM PRN 08/06 174 08/06 PO 2010 Results Results: Laboratory Tests 08/09/17 0715: Free T4 1.70, Total T3 1.74 H, TSH &T3 &Free T4 Intrp 0.045 L 08/08/17 1320: APTT Cancelled 08/08/17 0645: Anion Gap 12, Estimated GFR > 60, BUN/Creatinine Ratio 25.7 H, CBC w Diff NO MAN DIFF REQ, RBC 5.03, MCV 82.9, MCH 26.4 L, MCHC 31.9 L, RDW 13.1, MPV 9.0, Gran % 75.9 H, Lymphocytes % 20.3 L, Monocytes % 3.3, Eosinophils % 0.2, Basophils % 0.3, Absolute Granulocytes 5.5, Absolute Lymphocytes 1.5, Absolute Monocytes 0.2, Absolute Eosinophils 0, Absolute Basophils 0 08/08/17 0120: APTT 78 H 08/07/17 1240: APTT 63 H 08/07/17 0655: Anion Gap 9, Estimated GFR > 60, BUN/Creatinine Ratio 22.5, Total Bilirubin 0.6, Direct Bilirubin 0.2, AST 40 H, ALT 49, Alkaline Phosphatase 108, Creatine Kinase 361 H, Total Protein 7.2, Albumin 3.9, TSH 0.107 L, Free T4 2.38, Total T3 1.82 H, APTT > 120 *H, CBC w Diff NO MAN DIFF REQ, RBC 4.89, MCV 83.0, MCH 26.6 L, MCHC 32.0 L, RDW 13.7, MPV 9.3, Gran % 37.8 L, Lymphocytes % 46.3, Monocytes % 9.3, Eosinophils % 5.9 H, Basophils % 0.7, Absolute Granulocytes 2.0, Absolute Lymphocytes 2.4, Absolute Monocytes 0.5, Absolute Eosinophils 0.3, Absolute Basophils 0, Thyroglobulin Antibody 29, Thyroid Peroxidase Ab 38 08/07/17 0300: Urine Color YEL, Urine Clarity CLEAR, Urine pH 6.0, Ur Specific [place] 1.020, Urine Protein NEG, Urine Ketones NEG, Urine Nitrite NEG, Urine Bilirubin NEG, Urine Urobilinogen 0.2, Ur Leukocyte Esterase NEG, Ur Microscopic EXAM NOT REQUIRED, Urine Hemoglobin NEG, Urine Glucose >=1000 H 08/06/17 2330: Troponin I < 0.01 08/06/17 2024: APTT 83 H 08/06/17 1730: Troponin I < 0.01, Free T4 2.42, Total T3 1.80 H 08/06/17 1710: Troponin I Cancelled Assessment/Plan Assessment: Patient is 61 year old female with a PMHx of a fib, HTN, CAD, DE s/p stents, fibromuscular dysplasia s/p RA stent, hysterectomy/oopherectomy, chronic back pain, leg cramps, and lifetime non-smoker. She is here for f/u of 10/10 chest pain the morning of admission that has resolved in the ED with SNG. On CT and MRI she was found to have severe spinal stenosis of L4-L5 and mass effect of L3-L4 and L5-S1, for which she was put on a dexamethasone taper and is now pain free for the first time in years. There were incidental findings of < 3mm pulmonary nodules on chest CT, and low serum TSH (0.148), normal free T4 ( 2.42) and high total T3 (1.80) on admission. Thyroglobin antibodies and thyroid peroxidase antibodies were negative which rules out Hashitoxicosis. Thyroid US showed heterogeneous tissue, slightly enlarged right lobe, and a hypoechoic nodule on the left lobe. She was started on methimazole 2.5mg daily yesterday, and repeat labs today showed TSH 0.045, free T4 1.70, and total T3 1.74. Differential diagnosis includes Grave's disease, toxic adenoma, painless thyroiditis. Plan: Chest Pain: Atrial Fibrillation Patient's [id number] score is 4 with a 4.8% risk of stroke per year so she was started on Eliquis 5mg BID, D/C heparin Continue home meds Intradermal nitroglycerin HTN: Continue home meds CAD: D/C atorvastatin due to intense muscle cramps in leg which have since resolved Patient's ASCVD 10 year risk is 17.5% so she should be on a high intensity statin - find alternative? DM: Consult endocrinology "The patient is on an insulin regimen consisting of Levemir 10 units twice a day as well as sliding scale NovoLog before meals" Patient was non on insulin regimen at home so will need to switched back to oral medications or receive insulin teaching Hyperthyroidism: Continue on 2.5 mg methimazole PO daily Test for thyrotropin receptor antibodies to rule out Grave's disease Radioactive iodine scan in 4-6 weeks due to recent use of contrast F/U with endocrinology outpatient Pulmonary Nodules: Pulmonology consult: Patient is at low risk (lifetime nonsmoker) so no f/u is necessary but should consult with PCP if she needs further chest imaging in the future Back Pain: Continue on dexamethasone taper Refer to pain management F/U with neurologist outpatient
--- NOTE | 2017-08-09 13:11 | PN- Cardiology ---
Subjective Subjective: The patient remains in sinus rhythm. No chest pain. No shortness of breath. No palpitations. No diaphoresis Objective Vital Signs and I&Os Vital Signs Date Time Temp Pulse Resp B/P B/P Pulse O2 O2 Flow FiO2 Mean Ox Delivery Rate 08/09 0849 99 126/74 08/09 0849 99 126/74 08/09 0651 98.2 99 19 126/74 97 Room Air 08/08 2214 98.1 98 19 130/72 95 08/08 2137 94 130/72 08/08 1439 98.1 95 16 136/69 95 Room Air Intake & Output 08/09 1600 08/09 0800 08/09 0000 08/08 1600 08/08 0800 08/08 0000 Intake Total 220 440 950 385 260 Output Total Balance 220 440 950 385 260 Intake, IV 150 135 60 Intake, Oral 220 440 800 250 200 Number 3 Bowel Movements Patient 128 lb 187 lb Weight Physical Exam: General Appearance: well developed/nourished, alert, awake, oriented Head: normal HEENT: Normal Neck: supple, JVP normal, carotid upstrokes normal bilaterally, no masses or thyromegaly Respiratory: chest non-tender, clear to auscultation and percussion bilaterally Cardiovascular: regular rate/rhythm, normal S1, S2, 1/6 systolic murmur Abdomen: normal bowel sounds, soft, non-tender Extremities: normal inspection, no edema Vascular: Pulses are 2+ and equal bilaterally Neurologic: Grossly normal/nonfocal Current Medications: Current Medications Sig/Karmen Start time Last Medication Dose Route Stop Time Status Admin Acetaminophen 650 MG .STK-MED [facility] 08/08 2121 [place] PO 08/08 2122 Acetaminophen 650 MG Q6P PRN 08/06 1630 08/08 PO 2135 Amlodipine Besylate 5 MG DAILY 08/06 1738 AC 08/09 PO 0849 Apixaban 5 MG BID 08/08 1236 AC 08/09 PO 0849 Aspirin 81 MG DAILY 08/06 1739 AC 08/09 PO 0849 Dexamethasone 2 MG DAILY 08/14 0900 AC PO 08/15 0901 Dexamethasone 2 MG Q12 08/12 2100 AC PO 08/14 0901 Dexamethasone 2 MG Q6 08/10 1800 AC PO 08/12 1201 Dexamethasone 4 MG Q6 08/09 1800 AC PO 08/10 1201 Diclofenac Sodium 1 EDD 4 TIMES/DAY PRN 08/06 2315 AC TOP Duloxetine HCl 30 MG BID 08/06 2099 08/09 PO 0849 Gabapentin 300 MG QPM 08/07 2099 08/08 PO 2136 Insulin Aspart 0 TIDAC 08/07 0800 08/09 SC 1203 Insulin Detemir 10 UNITS BID 08/08 2099 08/09 SC 0845 Methimazole 2.5 MG DAILY 08/08 1247 08/09 PO 0850 Metoprolol Tartrate 100 MG BID 08/06 2099 08/09 PO 0849 Morphine Sulfate 2 MG Q6-PRN PRN 08/06 1715 08/07 IV 0925 Nitroglycerin 0.4 MG 08/07 08/08 TOP 213 Omeprazole 40 MG BID 08/07 2099 08/09 PO 0849 Oxycodone/ 1 TAB Q6P PRN 08/06 1630 08/09 Acetaminophen PO 0651 Polyethylene Glycol 17 GM AT BEDTIME 08/06 2099 08/07 PO 2157 Tizanidine HCl 2 MG QPM PRN 08/06 1745 08/06 PO 2010 Results Last 48 Hrs of Labs/Mics: Laboratory Tests 08/09/17 0715: Free T4 1.70, Total T3 1.74 H, TSH &T3 &Free T4 Intrp 0.045 L 08/08/17 1320: APTT Cancelled 08/08/17 0645: Anion Gap 12, Estimated GFR > 60, BUN/Creatinine Ratio 25.7 H, CBC w Diff NO MAN DIFF REQ, RBC 5.03, MCV 82.9, MCH 26.4 L, MCHC 31.9 L, RDW 13.1, MPV 9.0, Gran % 75.9 H, Lymphocytes % 20.3 L, Monocytes % 3.3, Eosinophils % 0.2, Basophils % 0.3, Absolute Granulocytes 5.5, Absolute Lymphocytes 1.5, Absolute Monocytes 0.2, Absolute Eosinophils 0, Absolute Basophils 0 08/08/17 0120: APTT 78 H Assessment/Plan Assessment/Plan Assessment: 1. Paroxysmal atrial fibrillalation with rapid ventricular rate-now in sinus rhythm 2. History of coronary artery disease; status post prior stent 3. Chest discomfort 4. Low TSH with elevated T3-in view of the patient's paroxysmal atrial fibrillation, consider baseline endocrinology input. 5. Prominent muscle cramping Plan: * Continue Eliquis * Continue other cardiac medications. * Okay for discharge from cardiac standpoint. * Follow-up in the office in 1 week. * Possible nuclear stress test as an outpatient Continue telemetry? Yes
[2017-08-09] MEDS ORDERED: ELIQUIS5 M1 PO (14:24)
[2017-08-09] MEDS ORDERED: DEXAMETHASONE2 M1 PO ×3 (14:24)
[2017-08-09] MEDS ORDERED: DEXAMETHASONE4 M1 PO (14:24)
[2017-08-09] MEDS ORDERED: GABAPENTIN300 M2 PO (14:24)
[2017-08-09] MEDS ORDERED: TAPAZOLE5 MG PO (14:26)
[2017-08-09] MEDS ORDERED: LEVEMIR100 UNIT/1 SC (14:41)
[2017-08-09] MEDS ORDERED: NOVOLOG100 UNIT/2 SC (14:41)
--- NOTE | 2017-08-09 14:43 | Patient Discharge Instructions ---
Discharge Instructions General Discharge Information You were seen/treated for: Chest pain A. fib with RVR Hyperthyroidism Special Instructions: 1please follow-up with your PCP in 1 week of discharge 2please follow-up with it support engineer in 1 week of discharge 3please follow-up with your valve inserter in 1 week of discharge 4please follow-up with your neurovascular surgeon in 1 week of discharge Diet Continue normal diet: No Recommended Diet: Diabetic Acute Coronary Syndrome Inclusion Criteria At DC or during hospital stay patient has or had the following: ACS DIAGNOSIS No Discharge Core Measures Meds if any: Prescribed or Continued at Discharge Meds if any: NOT Prescribed or Continued at Discharge Congestive Heart Failure Inclusion Criteria At DC or during hospital stay patient has or had the following: CHF DIAGNOSIS No Discharge Core Measures Meds if any: Prescribed or Continued at Discharge Meds if any: NOT Prescribed or Continued at Discharge Cerebrovascular accident Inclusion Criteria At DC or during hospital stay patient has or had the following: CVA/TIA Diagnosis No Discharge Core Measures Meds if any: Prescribed or Continued at Discharge Meds if any: NOT Prescribed or Continued at Discharge Venous thromboembolism Inclusion Criteria VTE Diagnosis No VTE Type NONE VTE Confirmed by (Test) NONE Discharge Core Measures - Per Current guidelines, there needs to be overlap - treatment for the first 5 days of Warfarin therapy. - If discharged on Warfarin prior to 5 days of - overlap therapy, the patient will need to be - assessed for post discharge needs including - *Post discharge parental anticoagulation - *Warfarin and/or parental anticoagulation education - *Follow up date to check INR post discharge At least 5 days overlap therapy as Inpatient No Meds if any: Prescribed or Continued at Discharge Note: Overlap Therapy is Warfarin and Anticoagulant Meds if any: NOT Prescribed or Continued at Discharge
[2017-08-09] MEDS ORDERED: NITROSTAT0.4 M1 SL (15:12)
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
== END 2017-08-09 15:38 | DRG 309 ==
LOC: ERH 08:58 → 1NO 14:53 → ERHI 14:53 → ENRESERV 15:52 → ENTRNSPT 16:36 → EDTRNSPT 16:40 → EDTRNSPTSTS 16:40 → 1NO 16:43 → CMPTRNSPT 17:00 → ENPENDDIS 08-09 14:44 → ENTRNSPT 08-09 15:26 → 1NO 08-09 15:38 → CMPTRNSPT 08-09 15:49
PROVIDERS: Emergency Medicine; Internal Medicine; Student in an Organized Health Care Education/Training Program
DX: I48.0 Paroxysmal atrial fibrillation (principal); I25.110 Atherosclerotic heart disease of native coronary artery with unstable angina pectoris; E11.9 Type 2 diabetes mellitus without complications; I10 Essential (primary) hypertension; Z98.61 Coronary angioplasty status; K21.9 Gastro-esophageal reflux disease without esophagitis; Z88.8 Allergy status to other drugs, medicaments and biological substances; I25.2 Old myocardial infarction; M54.9 Dorsalgia, unspecified; M19.90 Unspecified osteoarthritis, unspecified site; Z79.01 Long term (current) use of anticoagulants; E04.1 Nontoxic single thyroid nodule; R91.1 Solitary pulmonary nodule; Z96.0 Presence of urogenital implants; M48.061 Spinal stenosis, lumbar region without neurogenic claudication; Z90.710 Acquired absence of both cervix and uterus; E03.9 Hypothyroidism, unspecified
CPT/HCPCS: 1NSP; 72148; 36415; 36592; 81003; 82436; 86376; 86800; 93005; 93010; 93306; 99291; J1644; J3490